=== PATIENT | female | born 1980 | race Caucasian/White ===

== ENCOUNTER 2018-06-21 07:18 | Inpatient (IN) | payer OTHER ==
[2018-06-21] VITALS (7 sets, daily range): BP systolic 119–135; BP diastolic 59–76
[~2018-06-21] VITALS: Ht 177.8 cm; Wt 91.4 kg
--- NOTE | ~2018-06-21 | EKG ---
[place], [place] ELECTROCARDIOGRAM REPORT NAME: FERMÍN GUTIERREZ UNIT #: [id number] ROOM: [place] [address] DOCTOR: MARI DRAFT REPORT BIRTHDATE: [birth year] [facility] Test Date: 2018-06-21 Test Time: 10:15:08 Pat Name: FERMÍN GUTIERREZ Department: Room: [place] [address] Gender: F Undercar Specialist: Shira Duncan : 1980 Requested By: JOSE M BRYANT Order Number: [id number] Reading MD: Riya Ray MD Measurements Intervals [place] Rate: 103 P: 50 CA: 138 QRS: -7 QRSD: 89 T: 41 QT: 370 QTc: 485 Interpretive Statements Sinus tachycardia Electronically Signed On 06-21-2018 14:13:32 PDT by Riya Ray MD CM:EKGRPT:ELECTROCARDIOGRAM REPORT [id number] 1413 JOSE M BRYANT EPIPHANY DRAFT REPORT JOSE M BRYANT
--- NOTE | ~2018-06-21 | EKG ---
[place], [place] ELECTROCARDIOGRAM REPORT NAME: FERMÍN GUTIERREZ UNIT #: [id number] ROOM: [place] [address] DOCTOR: MARI DRAFT REPORT BIRTHDATE: [birth year] [facility] Test Date: 2018-06-21 Test Time: 07:51:09 Pat Name: FERMÍN GUTIERREZ Department: Room: [place] [address] Gender: F Clinical Administrator: Shira Duncan : 1980 Requested By: BRITTNEY CHILEL Order Number: [id number] Reading MD: Riya Ray MD Measurements Intervals [place] Rate: 100 P: 44 RI: 142 QRS: -1 QRSD: 92 T: 35 QT: 396 QTc: 511 Interpretive Statements Sinus tachycardia Prolonged QT interval Electronically Signed On 06-21-2018 14:13:00 PDT by Riya Ray MD CM:EKGRPT:ELECTROCARDIOGRAM REPORT 0751 1413 BRITTNEY CHU DRAFT REPORT BRITTNEY CHILEL DO
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
--- NOTE | ~2018-06-21 | EKG ---
[place], [place] ELECTROCARDIOGRAM REPORT NAME: FERMÍN GUTIERREZ UNIT #: [id number] ROOM: 532 DOCTOR: MARI DRAFT REPORT BIRTHDATE: [birth year] [facility] Test Date: 2018-06-22 Test Time: 07:13:34 Pat Name: FERMÍN GUTIERREZ Department: Room: 532 Gender: F Textile Screen Maker: [place] : 1980 Requested By: JOSE M BRYANT Order Number: [id number] Reading MD: Avtar Walker MD Measurements Intervals [place] Rate: 80 P: 46 SD: 151 QRS: -6 QRSD: 100 T: 30 QT: 408 QTc: 471 Interpretive Statements Sinus rhythm Compared to ECG 06/21/2018 10:15:08 Sinus tachycardia no longer present Electronically Signed On 06-24-2018 9:36:05 PDT by Avtar Walker MD CM:EKGRPT:ELECTROCARDIOGRAM REPORT 0713 0936 JOSE M GUERRA DRAFT REPORT JOSE M BRYANT
[~2018-06-21 07:18] MED LIST: CYCLOBENZAPRINE10 MG PO; DOXYCYCLINE HY100 M3 PO; DULOXETINE HCL60 MG PO; HYDROXYZINE PAM50 MG PO; PERCOCET 325 MG1 TA7 PO; PROMETHAZINE D473 ML PO; REXULTI1 MG PO; TRAZODONE150 MG PO
[2018-06-21 07:50] LABS: HEMATOCRIT 41.2 % (37.0-47.0); MEAN CELL VOLUME 85.8 fl (81.0-99.0); MEAN CORPUSCULAR HGB 29.2 pg (27.0-31.0); MEAN PLATELET VOLUME 9.2 fl (9.6-12.3); PLATELET COUNT AUTOMATED 497 10*3/uL (130-400); WHITE BLOOD COUNT 24.1 10*3/uL (4.8-10.8)
[2018-06-21 07:53] LABS: URINE AMPHETAMINES < 1000 (1000ng/ml); URINE BARBITURATES < 200 (200ng/ml); URINE BENZODIAZEPINES < 200 (200ng/ml); URINE CANNABINOIDS (THC) > 50 (50ng/ml); URINE COCAINE < 300 (300ng/ml); URINE METHADONE < 300 (300ng/ml); URINE OPIATES < 300 (300ng/ml)
[2018-06-21 07:54] LABS: URINE PHENCYCLIDINE < 25 (25ng/ml)
[2018-06-21 07:58] LABS: BILIRUBIN NEGATIVE (NEGATIVE); CLARITY CLEAR (CLEAR); COLOR YELLOW (YELLOW); GLUCOSE TRACE (NEGATIVE); KETONE 1+ (NEGATIVE)
[2018-06-21 07:59] LABS: BLOOD TRACE-INTACT (NEGATIVE); LEUKO ESTERASE NEGATIVE (NEGATIVE); NITRITE NEGATIVE (NEGATIVE); PH 5.5 (5.0-9.0); SPECIFIC GRAVITY 1.005 (1.005-1.030); UROBILINOGEN 0.2 E.U./dl (0.2-1.0)
[2018-06-21 07:59] LABS: ACT PARTIAL THROMBO TIME 24.6 SECONDS (20.8-31.5); INTERNATIONAL NORM RATIO 0.9 (2.0-3.5)
[2018-06-21 08:00] LABS: HYALINE CAST 0-2
[2018-06-21 08:06] LABS: ALBUMIN 3.7 gm/dl (3.1-4.5); ALKALINE PHOSPHATASE 110 U/L (45-117); BUN 5 mg/dl (7-24); CHLORIDE 107 mmol/L (98-107); LIPASE 159 U/L (73-393); POTASSIUM 3.8 mmol/L (3.5-5.1); SGOT/AST 12 IU/L (3-35); SGPT/ALT 24 U/L (12-78); SODIUM 140 mmol/L (136-145); TOTAL PROTEIN 8.9 gm/dL (6.4-8.2)
[2018-06-21 08:08] LABS: PLATELET SUFFICIENCY HIGH (NORMAL); TOTAL CELLS COUNTED 100 #CELLS
[2018-06-21 08:13] LABS: ACETAMINOPHEN (TYLENOL) < 5.0 ug/ml (10-30); BETA-HCG, QUANT < 1.0 mIU/mL (1-3); TROPONIN I < 0.015 ng/ml (<0.045)
[2018-06-21] MEDS ORDERED: BUSPIRONE30 MG PO (11:20)
[2018-06-21] MEDS ORDERED: LIPITOR40 MG PO (11:21)
[2018-06-21] MEDS ORDERED: BASAG SOL SC (11:22)
[2018-06-21] MEDS ORDERED: GLUCOPHAGE1000 MG PO (11:22)
[2018-06-21] MEDS ORDERED: CITALOPRAM40 MG PO (11:23)
[2018-06-21] MEDS ORDERED: ASPIRIN81 M1 PO (11:25)
[2018-06-22] VITALS: BP 128/59
[2018-06-22 04:00] VITALS: BP 99/47
[2018-06-22 05:45] LABS: BUN 9 mg/dl (7-24); CHLORIDE 102 mmol/L (98-107); CHOLESTEROL 114 mg/dL (<200); CREATININE 0.57 mg/dL (0.55-1.02); PHOSPHOROUS 3.1 mg/dL (2.5-4.9); POTASSIUM 3.6 mmol/L (3.5-5.1); SODIUM 137 mmol/L (136-145); TRIGLYCERIDES 190 mg/dl (<150); VLDL CHOLESTEROL 38 mg/dL (6-40)
[2018-06-22 05:53] LABS: ETHYL ALCOHOL < 3.0 mg/dl (<3); FREE T4 0.97 ng/dl (0.76-1.46); HDL CHOLESTEROL 40 mg/dl (40-60); LDL CHOLESTEROL 36 mg/dL (9-159)
[2018-06-22 06:09] LABS: HEMATOCRIT 36.8 % (37.0-47.0); HEMOGLOBIN 12.3 g/dl (12.0-16.0); MEAN CELL VOLUME 86.6 fl (81.0-99.0); MEAN CORPUSCULAR HGB 28.9 pg (27.0-31.0); MEAN CORPUSCULAR HGB CONC 33.4 g/dl (33.0-37.0); MEAN PLATELET VOLUME 9.8 fl (9.6-12.3); PLATELET COUNT AUTOMATED 449 10*3/uL (130-400); RED BLOOD COUNT 4.25 10*6/uL (4.10-5.10); RED CELL DISTRI WIDTH 13.1 % (0-14.5); WHITE BLOOD COUNT 22.1 10*3/uL (4.8-10.8)
[2018-06-22 06:46] LABS: PLATELET SUFFICIENCY HIGH (NORMAL); TOTAL CELLS COUNTED 100 #CELLS
[2018-06-22 08:00] VITALS: BP 121/68
[2018-06-22 08:14] LABS: VITAMIN D, 25-HYDROXY 24.9 ng/mL (30-100)
[2018-06-22 16:00] VITALS: BP 131/65
[2018-06-22 20:00] VITALS: BP 122/55
[2018-06-23] VITALS: BP 124/60
[2018-06-23 07:05] LABS: HEMATOCRIT 35.9 % (37.0-47.0); HEMOGLOBIN 11.7 g/dl (12.0-16.0); MEAN CELL VOLUME 87.8 fl (81.0-99.0); MEAN CORPUSCULAR HGB 28.6 pg (27.0-31.0); MEAN CORPUSCULAR HGB CONC 32.6 g/dl (33.0-37.0); MEAN PLATELET VOLUME 9.8 fl (9.6-12.3); PLATELET COUNT AUTOMATED 431 10*3/uL (130-400); RED BLOOD COUNT 4.09 10*6/uL (4.10-5.10); RED CELL DISTRI WIDTH 13.2 % (0-14.5); WHITE BLOOD COUNT 18.6 10*3/uL (4.8-10.8)
[2018-06-23 07:27] LABS: BASOPHILS 1 % (0-1); PLATELET SUFFICIENCY HIGH (NORMAL); TOTAL CELLS COUNTED 100 #CELLS
[2018-06-23 07:28] LABS: BUN 12 mg/dl (7-24); CHLORIDE 103 mmol/L (98-107); CREATININE 0.61 mg/dL (0.55-1.02); POTASSIUM 3.7 mmol/L (3.5-5.1); SODIUM 136 mmol/L (136-145)
[2018-06-23 08:00] VITALS: BP 119/59
[2018-06-23 12:00] VITALS: BP 112/49
[2018-06-23 16:00] VITALS: BP 117/78
[2018-06-24] VITALS: BP 129/71
[2018-06-24 08:00] VITALS: BP 124/53
[2018-06-24 12:00] VITALS: BP 128/56
== END 2018-06-24 15:15 | disposition home or self-care (01) | DRG 918 ==
LOC: ED 07:18 → EDHOLD 09:15 → ICCU 09:15 → 5E 09:15 → ICCU 09:23 → 5E 06-22 16:20
PROVIDERS: Emergency Medicine; Internal Medicine
DX: T38.3X2A Poisoning by insulin and oral hypoglycemic [antidiabetic] drugs, intentional self-harm, initial encounter (principal); E87.2 Acidosis; R45.851 Suicidal ideations; R65.10 Systemic inflammatory response syndrome (SIRS) of non-infectious origin without acute organ dysfunction; F33.2 Major depressive disorder, recurrent severe without psychotic features; R94.31 Abnormal electrocardiogram [ECG] [EKG]; F43.10 Post-traumatic stress disorder, unspecified; F40.00 Agoraphobia, unspecified; F41.9 Anxiety disorder, unspecified; R00.0 Tachycardia, unspecified; D72.829 Elevated white blood cell count, unspecified; R79.82 Elevated C-reactive protein (CRP); R80.9 Proteinuria, unspecified; R82.4 Acetonuria; F19.10 Other psychoactive substance abuse, uncomplicated; E11.65 Type 2 diabetes mellitus with hyperglycemia; R31.9 Hematuria, unspecified; D47.3 Essential (hemorrhagic) thrombocythemia; F12.90 Cannabis use, unspecified, uncomplicated; F10.920 Alcohol use, unspecified with intoxication, uncomplicated; Z71.6 Tobacco abuse counseling; Z68.20 Body mass index [BMI] 20.0-20.9, adult; Z88.8 Allergy status to other drugs, medicaments and biological substances; Z79.899 Other long term (current) drug therapy; Z79.82 Long term (current) use of aspirin; Z78.9 Other specified health status; Z72.0 Tobacco use; Z79.4 Long term (current) use of insulin; Z90.49 Acquired absence of other specified parts of digestive tract; Z90.81 Acquired absence of spleen; Z82.49 Family history of ischemic heart disease and other diseases of the circulatory system; Z83.511 Family history of glaucoma; Z83.3 Family history of diabetes mellitus; Z81.8 Family history of other mental and behavioral disorders; Z84.89 Family history of other specified conditions; Y92.89 Other specified places as the place of occurrence of the external cause

== ENCOUNTER 2018-08-29 23:26 | Emergency (ER) | payer OTHER ==
[~2018-08-29] VITALS: Ht 177.8 cm; Wt 93.0 kg
[~2018-08-29 23:26] MED LIST changes: +ASPIRIN81 M1 PO; +BASAG SOL SC; +BUSPIRONE30 MG PO; +CITALOPRAM40 MG PO; +GLUCOPHAGE1000 MG PO; +LIPITOR40 MG PO
[2018-08-30 00:18] LABS: ALBUMIN 3.9 gm/dl (3.1-4.5); ALKALINE PHOSPHATASE 100 U/L (45-117); BUN 11 mg/dl (7-24); CHLORIDE 97 mmol/L (98-107); CREATININE 0.88 mg/dL (0.55-1.02); SGOT/AST 22 IU/L (3-35); SGPT/ALT 27 U/L (12-78); SODIUM 130 mmol/L (136-145); TOTAL PROTEIN 8.3 gm/dL (6.4-8.2)
[2018-08-30 00:22] LABS: HEMATOCRIT 39.3 % (37.0-47.0); HEMOGLOBIN 12.9 g/dl (12.0-16.0); MEAN CORPUSCULAR HGB 28.2 pg (27.0-31.0); MEAN CORPUSCULAR HGB CONC 32.8 g/dl (33.0-37.0); MEAN PLATELET VOLUME 10.4 fl (9.6-12.3); PLATELET COUNT AUTOMATED 571 10*3/uL (130-400); RED BLOOD COUNT 4.57 10*6/uL (4.10-5.10); RED CELL DISTRI WIDTH 12.3 % (0-14.5); WHITE BLOOD COUNT 17.8 10*3/uL (4.8-10.8)
[2018-08-30 00:43] LABS: ATYPICAL LYMPHS 2 % (0-0); PLATELET SUFFICIENCY HIGH (NORMAL); TOTAL CELLS COUNTED 100 #CELLS
== END 2018-08-30 01:49 | disposition home or self-care (01) ==
LOC: ED 23:26
PROVIDERS: Physician Assistant
DX: E11.65 Type 2 diabetes mellitus with hyperglycemia (principal); Z88.1 Allergy status to other antibiotic agents; Z79.899 Other long term (current) drug therapy; Z79.82 Long term (current) use of aspirin

== ENCOUNTER 2019-02-02 15:12 | Emergency (ER) | payer OTHER ==
[~2019-02-02] VITALS: Ht 177.8 cm; Wt 95.3 kg
[2019-02-02 15:36] LABS: HEMOGLOBIN 14.1 g/dl (12.0-16.0); MEAN CELL VOLUME 88.4 fl (81.0-99.0); MEAN CORPUSCULAR HGB 29.7 pg (27.0-31.0); MEAN CORPUSCULAR HGB CONC 33.6 g/dl (33.0-37.0); MEAN PLATELET VOLUME 9.9 fl (9.6-12.3); PLATELET COUNT AUTOMATED 626 10*3/uL (130-400); RED BLOOD COUNT 4.75 10*6/uL (4.10-5.10); RED CELL DISTRI WIDTH 13.9 % (0-14.5); WHITE BLOOD COUNT 19.4 10*3/uL (4.8-10.8)
[2019-02-02 15:38] LABS: BILIRUBIN NEGATIVE (NEGATIVE); BLOOD NEGATIVE (NEGATIVE); CLARITY SL CLOUDY (CLEAR); COLOR YELLOW (YELLOW); GLUCOSE NEGATIVE (NEGATIVE); KETONE NEGATIVE (NEGATIVE); LEUKO ESTERASE NEGATIVE (NEGATIVE); NITRITE NEGATIVE (NEGATIVE); SPECIFIC GRAVITY >= 1.030 (1.005-1.030); UROBILINOGEN 0.2 E.U./dl (0.2-1.0)
[2019-02-02 15:48] LABS: BACTERIA 1+; CALCIUM OXALATE CRYSTALS 3+; EPITHELIAL CELLS 21-30
[2019-02-02 15:50] LABS: ALBUMIN 4.3 gm/dl (3.1-4.5); ALKALINE PHOSPHATASE 78 U/L (45-117); BUN 7 mg/dl (7-24); CHLORIDE 102 mmol/L (98-107); CREATININE 0.88 mg/dL (0.55-1.02); LIPASE 218 U/L (73-393); SGOT/AST 43 IU/L (3-35); SGPT/ALT 85 U/L (12-78); SODIUM 137 mmol/L (136-145)
[2019-02-02 15:57] LABS: TOTAL CELLS COUNTED 100 #CELLS
[2019-02-02 15:58] LABS: BURR CELLS FEW; PLATELET SUFFICIENCY HIGH (NORMAL)
[2019-02-02] MEDS ORDERED: TRULICITY1.5 MG/0.5 SC (16:05)
[2019-02-02] MEDS ORDERED: BASAG SOL SQ (16:06)
[2019-02-02] MEDS ORDERED: TRAZODONE HCL300 MG PO (16:07)
[2019-02-02] MEDS ORDERED: FENOFIBRATE54 MG PO (16:08)
[2019-02-02] MEDS ORDERED: ADMELOG100 UNIT/1 SQ (16:12)
[2019-02-02] MEDS ORDERED: ZOFRAN4 MG PO (17:20)
== END 2019-02-02 17:30 | disposition home or self-care (01) ==
LOC: ED 15:12
PROVIDERS: Nurse Practitioner Family
DX: D72.829 Elevated white blood cell count, unspecified (principal); R94.5 Abnormal results of liver function studies; R11.2 Nausea with vomiting, unspecified; R10.11 Right upper quadrant pain; M25.511 Pain in right shoulder; Z88.1 Allergy status to other antibiotic agents; Z72.0 Tobacco use; Z79.899 Other long term (current) drug therapy; Z90.49 Acquired absence of other specified parts of digestive tract

== ENCOUNTER 2019-09-13 16:57 | Emergency (ER) | payer OTHER ==
[~2019-09-13] VITALS: Ht 177.8 cm; Wt 90.7 kg
[~2019-09-13 16:57] MED LIST changes: +ADMELOG100 UNIT/1 SQ; +BASAG SOL SQ; +FENOFIBRATE54 MG PO; +TRAZODONE HCL300 MG PO; +TRULICITY1.5 MG/0.5 SC; +ZOFRAN4 MG PO
[2019-09-13] MEDS ORDERED: DOXYCYCLINE100 M3 PO (17:17)
[2019-09-13] MEDS ORDERED: IBUPROFEN600 MG PO (17:17)
== END 2019-09-13 17:28 | disposition home or self-care (01) ==
LOC: ED 16:57
DX: L02.01 Cutaneous abscess of face (principal); E78.5 Hyperlipidemia, unspecified; E11.9 Type 2 diabetes mellitus without complications; F17.200 Nicotine dependence, unspecified, uncomplicated; Z88.1 Allergy status to other antibiotic agents; Z79.4 Long term (current) use of insulin; Z79.899 Other long term (current) drug therapy; Z90.49 Acquired absence of other specified parts of digestive tract; Z86.14 Personal history of Methicillin resistant Staphylococcus aureus infection

== ENCOUNTER 2019-10-01 15:46 | Emergency (ER) | payer OTHER ==
[~2019-10-01] VITALS: Ht 177.8 cm; Wt 83.9 kg
[~2019-10-01 15:46] MED LIST changes: +DOXYCYCLINE100 M3 PO; +IBUPROFEN600 MG PO
== END 2019-10-01 16:35 | disposition home or self-care (01) ==
LOC: ED 15:46
DX: J02.0 Streptococcal pharyngitis (principal); E11.9 Type 2 diabetes mellitus without complications; E78.5 Hyperlipidemia, unspecified; F17.200 Nicotine dependence, unspecified, uncomplicated; Z88.1 Allergy status to other antibiotic agents; Z79.2 Long term (current) use of antibiotics; Z79.899 Other long term (current) drug therapy; Z79.4 Long term (current) use of insulin; Z90.49 Acquired absence of other specified parts of digestive tract

== ENCOUNTER → 2019-10-10 | Outpatient (CLI) | payer OTHER ==
[2019-10-10 12:44] LABS: BILIRUBIN NEGATIVE (NEGATIVE); BLOOD NEGATIVE (NEGATIVE); CLARITY CLOUDY (CLEAR); COLOR YELLOW (YELLOW); GLUCOSE 3+ (NEGATIVE); KETONE NEGATIVE (NEGATIVE); LEUKO ESTERASE NEGATIVE (NEGATIVE); NITRITE NEGATIVE (NEGATIVE); SPECIFIC GRAVITY 1.025 (1.005-1.030); UROBILINOGEN 0.2 E.U./dl (0.2-1.0)
[2019-10-10 12:59] LABS: ALBUMIN 3.5 gm/dl (3.1-4.5); BILIRUBIN, DIRECT < 0.1 mg/dL (0.0-0.2); BUN 7 mg/dl (7-24); CHLORIDE 101 mmol/L (98-107); CHOLESTEROL 145 mg/dL (<200); CREATININE 0.78 mg/dL (0.55-1.02); POTASSIUM 3.9 mmol/L (3.5-5.1); SGOT/AST 9 IU/L (3-35); SGPT/ALT 15 U/L (12-78); SODIUM 134 mmol/L (136-145); TOTAL PROTEIN 8.1 gm/dL (6.4-8.2); TRIGLYCERIDES 229 mg/dl (<150); VLDL CHOLESTEROL 46 mg/dL (6-40)
[2019-10-10 13:06] LABS: ALKALINE PHOSPHATASE 110 U/L (45-117); FREE T4 1.11 ng/dl (0.76-1.46); HDL CHOLESTEROL 36 mg/dl (40-60); LDL CHOLESTEROL 63 mg/dL (9-159)
[2019-10-10 13:45] LABS: BACTERIA 2+; EPITHELIAL CELLS 20-30; WBC 31-40 wbc/hpf (0-5); YEAST 1+
== END | disposition home or self-care (01) ==
LOC: LAB 11:58
PROVIDERS: Internal Medicine
DX: E78.5 Hyperlipidemia, unspecified (principal); E11.65 Type 2 diabetes mellitus with hyperglycemia; E55.9 Vitamin D deficiency, unspecified; E04.9 Nontoxic goiter, unspecified

== ENCOUNTER → 2019-12-31 | Outpatient (CLI) | payer OTHER | END | disposition home or self-care (01) | LOC: LAB 13:35 | DX: M54.12 Radiculopathy, cervical region (principal) ==

== ENCOUNTER → 2020-04-08 | Outpatient (CLI) | payer OTHER ==
[2020-04-08 11:02] LABS: BILIRUBIN NEGATIVE (NEGATIVE); BLOOD NEGATIVE (NEGATIVE); CLARITY CLOUDY (CLEAR); COLOR YELLOW (YELLOW); GLUCOSE NEGATIVE (NEGATIVE); KETONE NEGATIVE (NEGATIVE); LEUKO ESTERASE NEGATIVE (NEGATIVE); NITRITE NEGATIVE (NEGATIVE); PH 8.5 (5.0-9.0); SPECIFIC GRAVITY 1.005 (1.005-1.030); UROBILINOGEN 0.2 E.U./dl (0.2-1.0)
[2020-04-08 11:19] LABS: BACTERIA 2+; EPITHELIAL CELLS 41-50
[2020-04-08 11:24] LABS: ALBUMIN 3.6 gm/dl (3.1-4.5); ALKALINE PHOSPHATASE 78 U/L (45-117); BILIRUBIN, DIRECT < 0.1 mg/dL (0.0-0.2); BUN 10 mg/dl (7-24); CHLORIDE 106 mmol/L (98-107); CHOLESTEROL 134 mg/dL (<200); HDL CHOLESTEROL 55 mg/dl (40-60); LDL CHOLESTEROL 57 mg/dL (9-159); POTASSIUM 3.7 mmol/L (3.5-5.1); SGOT/AST 11 IU/L (3-35); SGPT/ALT 16 U/L (12-78); SODIUM 138 mmol/L (136-145); TOTAL PROTEIN 8.1 gm/dL (6.4-8.2); TRIGLYCERIDES 112 mg/dl (<150); VLDL CHOLESTEROL 22 mg/dL (6-40)
== END ==
LOC: LAB 10:27
PROVIDERS: Internal Medicine
DX: E11.65 Type 2 diabetes mellitus with hyperglycemia (principal); E55.9 Vitamin D deficiency, unspecified; E78.5 Hyperlipidemia, unspecified; E04.9 Nontoxic goiter, unspecified

== ENCOUNTER → 2020-08-05 | Outpatient (CLI) | payer OTHER ==
[2020-08-05 09:13] LABS: BILIRUBIN Negative (Negative); BLOOD Negative (Negative); CLARITY Clear (Clear); COLOR Yellow (Yellow); GLUCOSE 2+ (Negative); KETONE Negative (Negative); LEUKO ESTERASE Negative (Negative); NITRITE Negative (Negative); UROBILINOGEN 0.2 E.U./dl (0.0-1.0)
[2020-08-05 09:32] LABS: ALBUMIN 3.3 gm/dl (3.1-4.5); ALKALINE PHOSPHATASE 92 U/L (45-117); BILIRUBIN, DIRECT < 0.1 mg/dL (0.0-0.2); BUN 9 mg/dl (7-24); CHLORIDE 107 mmol/L (98-107); CREATININE 0.89 mg/dL (0.55-1.02); POTASSIUM 4.1 mmol/L (3.5-5.1); SGOT/AST 11 IU/L (3-35); SGPT/ALT 14 U/L (12-78); SODIUM 137 mmol/L (136-145); TOTAL PROTEIN 8.1 gm/dL (6.4-8.2)
[2020-08-05 09:33] LABS: FREE T4 0.99 ng/dl (0.76-1.46)
[2020-08-05 09:38] LABS: THYROID STIM HORMONE (HS) 4.52 uIU/ml (0.358-4.75)
[2020-08-05 09:39] LABS: BACTERIA 1+
[2020-08-06 06:08] LABS: HEP B CORE AB TOTAL Negative (Negative); HEPATITIS B SURFACE AB Non Reactive (.); HEPATITIS B SURFACE AG Negative (Negative)
== END | disposition home or self-care (01) ==
LOC: LAB 08:29
PROVIDERS: Internal Medicine; ATTEND Nurse Practitioner Family
DX: E11.65 Type 2 diabetes mellitus with hyperglycemia (principal); E78.5 Hyperlipidemia, unspecified; E04.9 Nontoxic goiter, unspecified; E55.9 Vitamin D deficiency, unspecified; R71.8 Other abnormality of red blood cells

== ENCOUNTER → 2020-09-07 | Outpatient (CLI) | payer OTHER ==
[2020-09-07 09:16] LABS: BILIRUBIN Negative (Negative); BLOOD Negative (Negative); CLARITY Clear (Clear); COLOR Yellow (Yellow); GLUCOSE Trace (Negative); KETONE Negative (Negative); LEUKO ESTERASE Negative (Negative); NITRITE Negative (Negative); PH 7.5 (4.5-8.0); UROBILINOGEN 0.2 E.U./dl (0.0-1.0)
[2020-09-07 09:27] LABS: HEMATOCRIT 39.2 % (37.0-47.0); MEAN CELL VOLUME 88.1 fl (81.0-99.0); MEAN CORPUSCULAR HGB 28.1 pg (27.0-31.0); MEAN CORPUSCULAR HGB CONC 31.9 g/dl (33.0-37.0); MEAN PLATELET VOLUME 10.3 fl (9.6-12.3); PLATELET COUNT AUTOMATED 490 10*3/uL (130-400); RED BLOOD COUNT 4.45 10*6/uL (4.10-5.10); RED CELL DISTRI WIDTH 13.3 % (0-14.5); WHITE BLOOD COUNT 19.1 10*3/uL (4.8-10.8)
[2020-09-07 09:38] LABS: RBC 0-2 rbc/hpf (0-2); WBC 0-2 wbc/hpf (0-5)
[2020-09-07 09:44] LABS: ACANTHOCYTES FEW; ATYPICAL LYMPHS 2 % (0-0); BASOPHILS 1 % (0-1); PLATELET SUFFICIENCY HIGH (NORMAL); TOTAL CELLS COUNTED 100 #CELLS
[2020-09-07 09:57] LABS: ALKALINE PHOSPHATASE 97 U/L (45-117); BUN 5 mg/dl (7-24); CHLORIDE 107 mmol/L (98-107); CREATININE 0.79 mg/dL (0.55-1.02); POTASSIUM 3.7 mmol/L (3.5-5.1); SGOT/AST 16 IU/L (3-35); SGPT/ALT 16 U/L (12-78); SODIUM 139 mmol/L (136-145); TOTAL PROTEIN 7.7 gm/dL (6.4-8.2)
== END | disposition home or self-care (01) ==
LOC: US 09-01 15:00 → LAB 08:39
PROVIDERS: ATTEND Urology
DX: E11.9 Type 2 diabetes mellitus without complications (principal); R35.0 Frequency of micturition

== ENCOUNTER 2021-01-26 19:15 | Emergency (ER) | payer OTHER ==
[~2021-01-26] VITALS: Wt 103.1 kg
[2021-01-26] MEDS ORDERED: REMERON15 M2 PO (19:34)
[2021-01-26] MEDS ORDERED: VRAYLAR4.5 MG PO (19:35)
[2021-01-26] MEDS ORDERED: GABAPENTIN400 MG PO (19:35)
[2021-01-26 19:57] LABS: HEMATOCRIT 38.5 % (37.0-47.0); MEAN CELL VOLUME 86.3 fl (81.0-99.0); MEAN CORPUSCULAR HGB CONC 32.5 g/dl (33.0-37.0); MEAN PLATELET VOLUME 9.6 fl (9.6-12.3); PLATELET COUNT AUTOMATED 660 10*3/uL (130-400); RED BLOOD COUNT 4.46 10*6/uL (4.10-5.10); RED CELL DISTRI WIDTH 13.4 % (0-14.5); WHITE BLOOD COUNT 27.2 10*3/uL (4.8-10.8)
[2021-01-26 19:57] LABS: BILIRUBIN Negative (Negative); BLOOD Negative (Negative); CLARITY Cloudy (Clear); COLOR Dark Yellow (Yellow); GLUCOSE 2+ (Negative); KETONE Trace (Negative); LEUKO ESTERASE Trace (Negative); NITRITE Negative (Negative); PH 5.5 (4.5-8.0); SPECIFIC GRAVITY >= 1.030 (1.001-1.030)
[2021-01-26 20:15] LABS: ALBUMIN 3.4 gm/dl (3.1-4.5); ALKALINE PHOSPHATASE 102 U/L (45-117); BUN 8 mg/dl (7-24); CHLORIDE 106 mmol/L (98-107); CPK 42 U/L (26-192); CREATININE 0.93 mg/dL (0.55-1.02); POTASSIUM 3.3 mmol/L (3.5-5.1); SGOT/AST 6 IU/L (3-35); SGPT/ALT 20 U/L (12-78); SODIUM 140 mmol/L (136-145); TOTAL PROTEIN 8.6 gm/dL (6.4-8.2)
[2021-01-26 20:16] LABS: BACTERIA 2+; CALCIUM OXALATE CRYSTALS Trace; EPITHELIAL CELLS 41-50; FINE GRANULAR CAST 0-2; MUCOUS TRACE; RBC 0-2 rbc/hpf (0-2)
[2021-01-26 20:22] LABS: TROPONIN I < 0.015 ng/ml (<0.045)
[2021-01-26 20:30] LABS: ATYPICAL LYMPHS 2 % (0-0); PLATELET SUFFICIENCY HIGH (NORMAL); TOTAL CELLS COUNTED 100 #CELLS
[2021-01-26 20:31] LABS: BURR CELLS FEW
== END 2021-01-27 00:27 | disposition short-term general hospital (02) ==
LOC: ED 19:15
PROVIDERS: Emergency Medicine
DX: D72.829 Elevated white blood cell count, unspecified (principal); R56.9 Unspecified convulsions; F41.9 Anxiety disorder, unspecified; F32.9 Major depressive disorder, single episode, unspecified; E78.5 Hyperlipidemia, unspecified; Z88.8 Allergy status to other drugs, medicaments and biological substances; Z79.899 Other long term (current) drug therapy; Z79.4 Long term (current) use of insulin; Z90.49 Acquired absence of other specified parts of digestive tract; Z98.890 Other specified postprocedural states

== ENCOUNTER → 2021-03-28 | Outpatient (CLI) | payer OTHER ==
[~2021-03-28] MED LIST changes: +GABAPENTIN400 MG PO; +REMERON15 M2 PO; +VRAYLAR4.5 MG PO
[2021-03-28 10:20] LABS: HEMATOCRIT 37.8 % (37.0-47.0); MEAN CELL VOLUME 88.7 fl (81.0-99.0); MEAN CORPUSCULAR HGB 28.4 pg (27.0-31.0); MEAN PLATELET VOLUME 10.8 fl (9.6-12.3); PLATELET COUNT AUTOMATED 549 10*3/uL (130-400); RED BLOOD COUNT 4.26 10*6/uL (4.10-5.10); RED CELL DISTRI WIDTH 14.1 % (0-14.5); WHITE BLOOD COUNT 17.8 10*3/uL (4.8-10.8)
[2021-03-28 10:31] LABS: ACT PARTIAL THROMBO TIME 28.3 SECONDS (20.0-32.1); INTERNATIONAL NORM RATIO 0.9 (2.0-3.5)
[2021-03-28 10:42] LABS: TOTAL CELLS COUNTED 100 #CELLS
[2021-03-28 10:43] LABS: BURR CELLS FEW; PLATELET SUFFICIENCY HIGH (NORMAL); POLYCHROMASIA SLIGHT
[2021-03-28 10:44] LABS: BASOPHILS 1 % (0-1)
[2021-03-28 10:54] LABS: BUN 7 mg/dl (7-24); CHLORIDE 107 mmol/L (98-107); CREATININE 0.92 mg/dL (0.55-1.02); POTASSIUM 3.9 mmol/L (3.5-5.1); SODIUM 139 mmol/L (136-145)
[2021-03-28 10:58] LABS: B-hCG (QUALITATIVE) NEGATIVE (NEGATIVE)
== END | disposition home or self-care (01) ==
LOC: LAB 09:26
DX: G40.909 Epilepsy, unspecified, not intractable, without status epilepticus (principal); R93.0 Abnormal findings on diagnostic imaging of skull and head, not elsewhere classified

== ENCOUNTER → 2021-05-05 | Outpatient (CLI) | payer OTHER ==
[2021-05-05 09:56] LABS: BILIRUBIN Negative (Negative); BLOOD Negative (Negative); CLARITY Turbid (Clear); COLOR Yellow (Yellow); GLUCOSE Negative (Negative); KETONE Trace (Negative); LEUKO ESTERASE 1+ (Negative); NITRITE Negative (Negative); PH 5.5 (4.5-8.0); SPECIFIC GRAVITY 1.025 (1.001-1.030)
[2021-05-05 10:09] LABS: EPITHELIAL CELLS TNTC; MUCOUS 1+
[2021-05-05 10:15] LABS: ALBUMIN 3.6 gm/dl (3.1-4.5); ALKALINE PHOSPHATASE 79 U/L (45-117); BUN 8 mg/dl (7-24); CHLORIDE 108 mmol/L (98-107); CHOLESTEROL 129 mg/dL (<200); CREATININE 0.74 mg/dL (0.55-1.02); FREE T4 1.14 ng/dl (0.76-1.46); LDL CHOLESTEROL 61 mg/dL (9-159); POTASSIUM 3.6 mmol/L (3.5-5.1); SGOT/AST 12 IU/L (3-35); SGPT/ALT 14 U/L (12-78); SODIUM 136 mmol/L (136-145); TOTAL PROTEIN 8.1 gm/dL (6.4-8.2); TRIGLYCERIDES 146 mg/dl (<150)
== END | disposition home or self-care (01) ==
LOC: LAB 09:37
PROVIDERS: ATTEND Internal Medicine
DX: E11.65 Type 2 diabetes mellitus with hyperglycemia (principal); E78.5 Hyperlipidemia, unspecified; E11.40 Type 2 diabetes mellitus with diabetic neuropathy, unspecified; E55.9 Vitamin D deficiency, unspecified; E04.9 Nontoxic goiter, unspecified

== ENCOUNTER → 2021-07-08 | Outpatient (CLI) | payer OTHER | END | disposition home or self-care (01) | LOC: CT 09:53 | PROVIDERS: ATTEND Nurse Practitioner Family | DX: R59.0 Localized enlarged lymph nodes (principal) ==

== ENCOUNTER 2021-07-22 10:21 | Emergency (ER) | payer OTHER ==
[~2021-07-22] VITALS: Wt 94.3 kg
[2021-07-22 11:45] LABS: BILIRUBIN 1+ (Negative); BLOOD 2+ (Negative); CLARITY Turbid (Clear); COLOR Red (Yellow); GLUCOSE Negative (Negative); KETONE Negative (Negative); LEUKO ESTERASE 3+ (Negative); NITRITE Positive (Negative); PH 5.5 (4.5-8.0); UROBILINOGEN 0.2 E.U./dl (0.0-1.0)
[2021-07-22 11:58] LABS: BACTERIA 3+; RBC TNTC rbc/hpf (0-2); WBC TNTC wbc/hpf (0-5)
[2021-07-22] MEDS ORDERED: PYRIDIUM200 M1 PO (12:16)
[2021-07-22] MEDS ORDERED: MACROBID100 M1 PO (12:16)
== END 2021-07-22 12:33 | disposition home or self-care (01) ==
LOC: ED 10:21
PROVIDERS: Nurse Practitioner Family
DX: N39.0 Urinary tract infection, site not specified (principal); F17.200 Nicotine dependence, unspecified, uncomplicated; Z88.1 Allergy status to other antibiotic agents; Z79.899 Other long term (current) drug therapy; Z79.4 Long term (current) use of insulin; Z90.49 Acquired absence of other specified parts of digestive tract; Z90.89 Acquired absence of other organs

== ENCOUNTER 2021-08-09 15:19 | Emergency (ER) | payer OTHER ==
[~2021-08-09] VITALS: Ht 177.8 cm; Wt 94.3 kg
[~2021-08-09 15:19] MED LIST changes: +MACROBID100 M1 PO; +PYRIDIUM200 M1 PO
[2021-08-09] MEDS ORDERED: WELLBUTRIN XL150 MG PO (15:46)
[2021-08-09] MEDS ORDERED: TRAZODONE100 MG PO (15:47)
[2021-08-09] MEDS ORDERED: REGLAN10 M1 PO (15:47)
[2021-08-09] MEDS ORDERED: ZOFRAN4 MG PO (15:48)
[2021-08-09 16:04] LABS: BILIRUBIN Negative (Negative); BLOOD Negative (Negative); CLARITY Cloudy (Clear); COLOR Yellow (Yellow); GLUCOSE Negative (Negative); KETONE Trace (Negative); LEUKO ESTERASE 1+ (Negative); NITRITE Negative (Negative); PH 5.5 (4.5-8.0); SPECIFIC GRAVITY 1.025 (1.001-1.030)
[2021-08-09 16:15] LABS: BACTERIA 2+; EPITHELIAL CELLS 51-100; MUCOUS 1+; RBC 0-2 rbc/hpf (0-2); WBC 16-20 wbc/hpf (0-5)
[2021-08-09 16:25] LABS: URINE AMPHETAMINES > 1000 (1000ng/ml); URINE BARBITURATES < 200 (200ng/ml); URINE BENZODIAZEPINES < 200 (200ng/ml); URINE CANNABINOIDS (THC) > 50 (50ng/ml); URINE COCAINE > 300 (300ng/ml); URINE METHADONE < 300 (300ng/ml); URINE OPIATES < 300 (300ng/ml)
[2021-08-09 16:30] LABS: URINE PHENCYCLIDINE < 25 (25ng/ml)
[2021-08-09 16:42] LABS: HEMATOCRIT 38.6 % (37.0-47.0); MEAN CELL VOLUME 86.7 fl (81.0-99.0); MEAN CORPUSCULAR HGB 28.1 pg (27.0-31.0); MEAN CORPUSCULAR HGB CONC 32.4 g/dl (33.0-37.0); PLATELET COUNT AUTOMATED 598 10*3/uL (130-400); RED BLOOD COUNT 4.45 10*6/uL (4.10-5.10); RED CELL DISTRI WIDTH 13.8 % (0-14.5); WHITE BLOOD COUNT 20.8 10*3/uL (4.8-10.8)
[2021-08-09 17:04] LABS: ALBUMIN 3.3 gm/dl (3.1-4.5); ALKALINE PHOSPHATASE 69 U/L (45-117); BUN 7 mg/dl (7-24); CHLORIDE 107 mmol/L (98-107); CREATININE 0.74 mg/dL (0.55-1.02); SGOT/AST 21 IU/L (3-35); SGPT/ALT 22 U/L (12-78); SODIUM 137 mmol/L (136-145); TOTAL PROTEIN 7.7 gm/dL (6.4-8.2)
[2021-08-09 17:05] LABS: ACANTHOCYTES FEW; ATYPICAL LYMPHS 5 % (0-0); BASOPHILS 1 % (0-1); PLATELET SUFFICIENCY HIGH (NORMAL); TOTAL CELLS COUNTED 100 #CELLS
[2021-08-09 17:06] LABS: BURR CELLS MODERATE
[2021-08-09 17:33] LABS: B-hCG (QUALITATIVE) NEGATIVE (NEGATIVE)
[2021-08-09 17:45] LABS: CARBAMAZEPINE (TEGRETOL) TOTAL < 0.5 ug/ml (4-12)
[2021-08-09 20:35] LABS: CPK 30 U/L (26-192)
[2021-08-09 20:36] LABS: ETHYL ALCOHOL < 3.0 mg/dl (<3)
== END 2021-08-10 09:15 | disposition short-term general hospital (02) ==
LOC: ED 15:19
PROVIDERS: Internal Medicine
DX: F43.21 Adjustment disorder with depressed mood (principal); Z20.822 Contact with and (suspected) exposure to COVID-19; R45.851 Suicidal ideations; F17.200 Nicotine dependence, unspecified, uncomplicated; Z79.899 Other long term (current) drug therapy; Z88.1 Allergy status to other antibiotic agents

== ENCOUNTER → 2021-09-19 | Outpatient (CLI) | payer OTHER ==
[~2021-09-19] MED LIST changes: +REGLAN10 M1 PO; +TRAZODONE100 MG PO; +WELLBUTRIN XL150 MG PO
[2021-09-19 08:42] LABS: BILIRUBIN Negative (Negative); BLOOD Negative (Negative); CLARITY Turbid (Clear); COLOR Dark Yellow (Yellow); GLUCOSE 3+ (Negative); KETONE Trace (Negative); LEUKO ESTERASE Negative (Negative); NITRITE Negative (Negative); SPECIFIC GRAVITY >= 1.030 (1.001-1.030)
[2021-09-19 09:07] LABS: BACTERIA TRACE; CALCIUM OXALATE CRYSTALS 1+; EPITHELIAL CELLS 21-30
[2021-09-19 09:24] LABS: ALBUMIN 3.2 gm/dl (3.1-4.5); ALKALINE PHOSPHATASE 75 U/L (45-117); BUN 5 mg/dl (7-24); CHLORIDE 105 mmol/L (98-107); CHOLESTEROL 95 mg/dL (<200); CREATININE 0.65 mg/dL (0.55-1.02); FREE T4 1.16 ng/dl (0.76-1.46); LDL CHOLESTEROL 33 mg/dL (9-159); POTASSIUM 3.9 mmol/L (3.5-5.1); SGOT/AST 45 IU/L (3-35); SGPT/ALT 65 U/L (12-78); SODIUM 139 mmol/L (136-145); TOTAL PROTEIN 7.6 gm/dL (6.4-8.2); TRIGLYCERIDES 140 mg/dl (<150)
[2021-09-19 10:19] LABS: VITAMIN D, 25-HYDROXY 52.8 ng/mL (30-100)
== END | disposition home or self-care (01) ==
LOC: LAB 07:48
PROVIDERS: ATTEND Internal Medicine
DX: E11.65 Type 2 diabetes mellitus with hyperglycemia (principal); E11.40 Type 2 diabetes mellitus with diabetic neuropathy, unspecified; E78.5 Hyperlipidemia, unspecified; E55.9 Vitamin D deficiency, unspecified; E04.9 Nontoxic goiter, unspecified

== ENCOUNTER → 2022-03-27 | Outpatient (CLI) | payer OTHER ==
[2022-03-27 08:59] LABS: BILIRUBIN Negative (Negative); BLOOD Trace-Intact (Negative); CLARITY Clear (Clear); COLOR Dark Yellow (Yellow); GLUCOSE Trace (Negative); KETONE Trace (Negative); LEUKO ESTERASE Negative (Negative); NITRITE Negative (Negative); SPECIFIC GRAVITY >= 1.030 (1.001-1.030); UROBILINOGEN 0.2 E.U./dl (0.0-1.0)
[2022-03-27 09:16] LABS: BUN 11 mg/dl (7-24); CHLORIDE 105 mmol/L (98-107); SODIUM 138 mmol/L (136-145)
[2022-03-27 09:27] LABS: ALKALINE PHOSPHATASE 55 U/L (45-117); CHOLESTEROL 92 mg/dL (<200); CREATININE 0.95 mg/dL (0.55-1.02); LDL CHOLESTEROL 23 mg/dL (9-159); SGOT/AST 13 IU/L (3-35); SGPT/ALT 17 U/L (12-78); TOTAL PROTEIN 7.2 gm/dL (6.4-8.2); TRIGLYCERIDES 89 mg/dl (<150)
[2022-03-27 09:50] LABS: BACTERIA 1+; CALCIUM OXALATE CRYSTALS Trace; EPITHELIAL CELLS TNTC; WBC 0-2 wbc/hpf (0-5)
[2022-03-27 10:03] LABS: VITAMIN D, 25-HYDROXY 49.2 ng/mL (30-100)
== END | disposition home or self-care (01) ==
LOC: LAB 08:35
PROVIDERS: ATTEND Internal Medicine
DX: E11.40 Type 2 diabetes mellitus with diabetic neuropathy, unspecified (principal); E55.9 Vitamin D deficiency, unspecified; E78.5 Hyperlipidemia, unspecified; E04.9 Nontoxic goiter, unspecified

== ENCOUNTER → 2022-11-14 | Outpatient (CLI) | payer OTHER ==
[2022-11-14 10:36] LABS: HEMATOCRIT 36.2 % (37.0-47.0); MEAN CELL VOLUME 97.8 fl (81.0-99.0); MEAN CORPUSCULAR HGB 31.6 pg (27.0-31.0); MEAN CORPUSCULAR HGB CONC 32.3 g/dl (33.0-37.0); MEAN PLATELET VOLUME 10.8 fl (9.6-12.3); RED BLOOD COUNT 3.7 10*6/uL (4.10-5.10); RED CELL DISTRI WIDTH 13.5 % (0-14.5); WHITE BLOOD COUNT 18.9 10*3/uL (4.8-10.8)
[2022-11-14 10:51] LABS: ALKALINE PHOSPHATASE 50 U/L (46-116); BUN 6 mg/dl (9-23); CHLORIDE 105 mmol/L (98-107); POTASSIUM 3.8 mmol/L (3.4-5.1); SGPT/ALT 20 U/L (10-49); TOTAL PROTEIN 7.5 gm/dL (6.0-8.0)
== END | disposition home or self-care (01) ==
LOC: LAB 02:12
PROVIDERS: ATTEND Internal Medicine Gastroenterology
DX: D64.9 Anemia, unspecified (principal)

== ENCOUNTER → 2022-11-21 | Outpatient (CLI) | payer OTHER | END | disposition home or self-care (01) | LOC: NM 11-20 07:00 | PROVIDERS: ATTEND Nurse Practitioner Family | DX: K31.84 Gastroparesis (principal) ==

== ENCOUNTER → 2022-12-19 | Outpatient (CLI) | payer OTHER ==
[2022-12-19 13:27] LABS: BILIRUBIN Negative (Negative); BLOOD Negative (Negative); CLARITY Cloudy (Clear); COLOR Yellow (Yellow); GLUCOSE Negative (Negative); KETONE Negative (Negative); LEUKO ESTERASE Trace (Negative); NITRITE Negative (Negative); SPECIFIC GRAVITY 1.015 (1.001-1.030); UROBILINOGEN 0.2 E.U./dl (0.0-1.0)
[2022-12-19 13:37] LABS: BACTERIA 2+; EPITHELIAL CELLS 16-20
[2022-12-19 13:50] LABS: ALKALINE PHOSPHATASE 51 U/L (46-116); BUN 10 mg/dl (9-23); CHLORIDE 108 mmol/L (98-107); CHOLESTEROL 126 mg/dL (<200); FREE T4 1.11 ng/dl (0.89-1.76); LDL CHOLESTEROL 54 mg/dL (9-159); SGPT/ALT 14 U/L (10-49); THYROID STIM HORMONE (HS) 1.539 uIU/ml (0.550-4.780); TOTAL PROTEIN 7.4 gm/dL (6.0-8.0); TRIGLYCERIDES 93 mg/dl (<150)
[2022-12-19 14:23] LABS: VITAMIN D, 25-HYDROXY 65.1 ng/mL (30-100)
== END | disposition home or self-care (01) ==
LOC: LAB 00:29
PROVIDERS: Internal Medicine; ATTEND Nurse Practitioner Family
DX: M47.817 Spondylosis without myelopathy or radiculopathy, lumbosacral region (principal); M47.812 Spondylosis without myelopathy or radiculopathy, cervical region; M41.82 Other forms of scoliosis, cervical region; M25.78 Osteophyte, vertebrae; E11.40 Type 2 diabetes mellitus with diabetic neuropathy, unspecified; E55.9 Vitamin D deficiency, unspecified; E78.5 Hyperlipidemia, unspecified; E04.9 Nontoxic goiter, unspecified

== ENCOUNTER 2023-01-01 15:00 | Emergency (ER) | payer OTHER ==
[~2023-01-01] VITALS: Ht 175.2 cm; Wt 58.1 kg
[2023-01-01 16:15] LABS: BASO # 0.1 10*3/uL (0.0-0.1); BASO % 0.6 % (0.0-1.0); EOS # 0.5 10*3/uL (0.0-0.4); EOS % 3.6 % (1.0-4.0); HEMATOCRIT 31.7 % (37.0-47.0); LYMPH % 27.9 % (27.0-41.0); MEAN CELL VOLUME 94.9 fl (81.0-99.0); MEAN CORPUSCULAR HGB CONC 33.8 g/dl (33.0-37.0); MEAN PLATELET VOLUME 9.8 fl (9.6-12.3); MONO # 1.1 10*3/uL (0.1-1.0); MONO % 7.9 % (3.0-9.0); NEUT # 8.4 10*3/uL (2.3-7.9); NEUT % 59.6 % (47.0-73.0); PLATELET COUNT AUTOMATED 518 10*3/uL (130-400); RED BLOOD COUNT 3.34 10*6/uL (4.10-5.10); RED CELL DISTRI WIDTH 13.1 % (0-14.5); WHITE BLOOD COUNT 14.1 10*3/uL (4.8-10.8)
[2023-01-01 16:31] LABS: ACT PARTIAL THROMBO TIME 28.7 SECONDS (20.0-32.1)
[2023-01-01 16:40] LABS: ALKALINE PHOSPHATASE 89 U/L (46-116); BETA-HCG, QUANT < 3.0 mIU/mL (0-10); BUN 8 mg/dl (9-23); CHLORIDE 110 mmol/L (98-107); POTASSIUM 3.8 mmol/L (3.4-5.1); SGPT/ALT 23 U/L (10-49); TOTAL PROTEIN 7.2 gm/dL (6.0-8.0)
[2023-01-01] MEDS ORDERED: CEPHALEXIN500 M1 PO (17:38)
== END 2023-01-01 18:27 | disposition home or self-care (01) ==
LOC: ED 15:00
PROVIDERS: Internal Medicine
DX: S01.111A Laceration without foreign body of right eyelid and periocular area, initial encounter (principal); Z88.1 Allergy status to other antibiotic agents; Z79.899 Other long term (current) drug therapy; Z90.49 Acquired absence of other specified parts of digestive tract; Z98.890 Other specified postprocedural states; F17.200 Nicotine dependence, unspecified, uncomplicated; W18.39XA Other fall on same level, initial encounter; Y93.89 Activity, other specified; Y92.89 Other specified places as the place of occurrence of the external cause; Y99.8 Other external cause status

== ENCOUNTER 2023-01-23 17:37 | Emergency (ER) | payer OTHER ==
[~2023-01-23] VITALS: Ht 177.8 cm; Wt 54.4 kg
[~2023-01-23 17:37] MED LIST changes: +CEPHALEXIN500 M1 PO
[2023-01-23 18:29] LABS: BASO % 0.4 % (0.0-1.0); EOS % 0.3 % (1.0-4.0); HEMATOCRIT 33.8 % (37.0-47.0); LYMPH # 2.5 10*3/uL (1.3-4.4); LYMPH % 24.2 % (27.0-41.0); MEAN CELL VOLUME 91.8 fl (81.0-99.0); MEAN CORPUSCULAR HGB 32.1 pg (27.0-31.0); MEAN CORPUSCULAR HGB CONC 34.9 g/dl (33.0-37.0); MEAN PLATELET VOLUME 9.3 fl (9.6-12.3); MONO # 1.4 10*3/uL (0.1-1.0); MONO % 13.6 % (3.0-9.0); NEUT # 6.3 10*3/uL (2.3-7.9); NEUT % 61.1 % (47.0-73.0); PLATELET COUNT AUTOMATED 553 10*3/uL (130-400); RED BLOOD COUNT 3.68 10*6/uL (4.10-5.10); WHITE BLOOD COUNT 10.2 10*3/uL (4.8-10.8)
[2023-01-23 18:44] LABS: ALKALINE PHOSPHATASE 77 U/L (46-116); BUN 8 mg/dl (9-23); CHLORIDE 102 mmol/L (98-107); LIPASE 31 U/L (12-53); SGPT/ALT 24 U/L (10-49); TOTAL PROTEIN 8.2 gm/dL (6.0-8.0)
[2023-01-23 19:39] LABS: BILIRUBIN Negative (Negative); BLOOD Negative (Negative); CLARITY Clear (Clear); COLOR Yellow (Yellow); GLUCOSE Negative (Negative); KETONE 1+ (Negative); LEUKO ESTERASE 2+ (Negative); NITRITE Negative (Negative); UROBILINOGEN 0.2 E.U./dl (0.0-1.0)
[2023-01-23 19:40] LABS: PH >= 9.0 (4.5-8.0)
[2023-01-23 19:47] LABS: BACTERIA 1+; EPITHELIAL CELLS 16-20; MUCOUS 1+; URINE AMPHETAMINES Negative (1000ng/ml); URINE BARBITURATES Negative (200ng/ml); URINE BENZODIAZEPINES Negative (200ng/ml); URINE CANNABINOIDS (THC) Positive (50ng/ml); URINE COCAINE Negative (300ng/ml); URINE METHADONE Negative (300ng/ml); URINE OPIATES Negative (300ng/ml); URINE PHENCYCLIDINE Negative (25ng/ml)
[2023-01-23] MEDS ORDERED: CIPRO500 MG PO (22:39)
== END 2023-01-23 22:50 | disposition home or self-care (01) ==
LOC: ED 17:37
PROVIDERS: Internal Medicine
DX: N39.0 Urinary tract infection, site not specified (principal); E87.6 Hypokalemia; E83.42 Hypomagnesemia; N20.0 Calculus of kidney; D64.9 Anemia, unspecified; Z88.1 Allergy status to other antibiotic agents; Z79.899 Other long term (current) drug therapy; Z90.49 Acquired absence of other specified parts of digestive tract; F17.200 Nicotine dependence, unspecified, uncomplicated

== ENCOUNTER 2023-02-05 11:19 | Emergency (ER) | payer OTHER ==
[~2023-02-05 11:19] MED LIST changes: +CIPRO500 MG PO
[2023-02-05 12:13] LABS: BILIRUBIN Negative (Negative); BLOOD Negative (Negative); CLARITY Clear (Clear); COLOR Yellow (Yellow); GLUCOSE Negative (Negative); KETONE Negative (Negative); LEUKO ESTERASE Trace (Negative); NITRITE Negative (Negative); SPECIFIC GRAVITY <= 1.005 (1.001-1.030); UROBILINOGEN 0.2 E.U./dl (0.0-1.0)
[2023-02-05 12:21] LABS: URINE AMPHETAMINES Negative (1000ng/ml); URINE BARBITURATES Negative (200ng/ml); URINE BENZODIAZEPINES Negative (200ng/ml); URINE CANNABINOIDS (THC) Positive (50ng/ml); URINE COCAINE Positive (300ng/ml); URINE METHADONE Negative (300ng/ml); URINE OPIATES Negative (300ng/ml); URINE PHENCYCLIDINE Negative (25ng/ml)
[2023-02-05 12:32] LABS: PH > 8.0 (4.5-8.0)
[2023-02-05 12:40] LABS: BACTERIA TRACE
[2023-02-05 12:41] LABS: BASO # 0.1 10*3/uL (0.0-0.1); BASO % 0.5 % (0.0-1.0); EOS # 0.3 10*3/uL (0.0-0.4); EOS % 1.7 % (1.0-4.0); HEMATOCRIT 32.7 % (37.0-47.0); LYMPH # 4.1 10*3/uL (1.3-4.4); LYMPH % 24.8 % (27.0-41.0); MEAN CELL VOLUME 94.8 fl (81.0-99.0); MEAN CORPUSCULAR HGB 31.9 pg (27.0-31.0); MEAN CORPUSCULAR HGB CONC 33.6 g/dl (33.0-37.0); MEAN PLATELET VOLUME 9.2 fl (9.6-12.3); MONO # 1.4 10*3/uL (0.1-1.0); MONO % 8.6 % (3.0-9.0); NEUT # 10.6 10*3/uL (2.3-7.9); PLATELET COUNT AUTOMATED 489 10*3/uL (130-400); RED BLOOD COUNT 3.45 10*6/uL (4.10-5.10); WHITE BLOOD COUNT 16.5 10*3/uL (4.8-10.8)
[2023-02-05 12:59] LABS: ALKALINE PHOSPHATASE 67 U/L (46-116); BETA-HCG, QUANT < 3.0 mIU/mL (0-10); BUN 7 mg/dl (9-23); CHLORIDE 104 mmol/L (98-107); LIPASE 23 U/L (12-53); POTASSIUM 3.4 mmol/L (3.4-5.1); SGPT/ALT 19 U/L (10-49); TOTAL PROTEIN 7.1 gm/dL (6.0-8.0)
[2023-02-05 13:06] LABS: ACT PARTIAL THROMBO TIME 27.9 SECONDS (20.0-32.1)
== END 2023-02-05 15:34 | disposition home or self-care (01) ==
LOC: ED 11:19
PROVIDERS: Emergency Medicine
DX: R42 Dizziness and giddiness (principal); R11.0 Nausea; F19.10 Other psychoactive substance abuse, uncomplicated; F41.9 Anxiety disorder, unspecified; F32.A Depression, unspecified; E78.5 Hyperlipidemia, unspecified; E11.9 Type 2 diabetes mellitus without complications; Z88.1 Allergy status to other antibiotic agents; Z90.49 Acquired absence of other specified parts of digestive tract; Z98.890 Other specified postprocedural states; Z79.4 Long term (current) use of insulin; Z79.899 Other long term (current) drug therapy

== ENCOUNTER → 2023-04-20 | Outpatient (CLI) | payer OTHER | END | disposition home or self-care (01) | LOC: RAD 01:22 | PROVIDERS: ATTEND Nurse Practitioner Family | DX: M25.551 Pain in right hip (principal) ==

== ENCOUNTER → 2023-05-10 | Outpatient (CLI) | payer OTHER ==
[2023-05-10 08:29] LABS: BILIRUBIN Negative (Negative); BLOOD Negative (Negative); CLARITY Turbid (Clear); COLOR Yellow (Yellow); GLUCOSE 2+ (Negative); KETONE Negative (Negative); LEUKO ESTERASE 1+ (Negative); NITRITE Negative (Negative); PH 7.5 (4.5-8.0); SPECIFIC GRAVITY 1.015 (1.001-1.030); UROBILINOGEN 0.2 E.U./dl (0.0-1.0)
[2023-05-10 09:12] LABS: VITAMIN D, 25-HYDROXY 45.8 ng/mL (30-100)
[2023-05-10 09:13] LABS: ALKALINE PHOSPHATASE 187 U/L (46-116); BUN 8 mg/dl (9-23); CHLORIDE 105 mmol/L (98-107); CHOLESTEROL 127 mg/dL (<200); FREE T4 0.98 ng/dl (0.89-1.76); LDL CHOLESTEROL 49 mg/dL (9-159); POTASSIUM 3.7 mmol/L (3.4-5.1); SGPT/ALT 13 U/L (10-49); TOTAL PROTEIN 7.9 gm/dL (6.0-8.0); TRIGLYCERIDES 80 mg/dl (<150)
== END | disposition home or self-care (01) ==
LOC: LAB 00:27
PROVIDERS: ATTEND Internal Medicine
DX: E11.40 Type 2 diabetes mellitus with diabetic neuropathy, unspecified (principal); E61.1 Iron deficiency; E11.9 Type 2 diabetes mellitus without complications; E55.9 Vitamin D deficiency, unspecified; E04.9 Nontoxic goiter, unspecified; E78.5 Hyperlipidemia, unspecified

== ENCOUNTER 2023-07-12 12:32 | Emergency (ER) | payer OTHER ==
[~2023-07-12] VITALS: Wt 54.4 kg
== END 2023-07-12 12:49 | disposition home or self-care (01) ==
LOC: ED 12:32
DX: F41.9 Anxiety disorder, unspecified (principal); F32.A Depression, unspecified; E11.9 Type 2 diabetes mellitus without complications; Z79.4 Long term (current) use of insulin; E78.5 Hyperlipidemia, unspecified; Z88.1 Allergy status to other antibiotic agents; Z90.49 Acquired absence of other specified parts of digestive tract; Z98.890 Other specified postprocedural states; F19.10 Other psychoactive substance abuse, uncomplicated; Z72.0 Tobacco use

== ENCOUNTER → 2023-09-20 | Outpatient (CLI) | payer OTHER ==
[2023-09-20 10:06] LABS: BILIRUBIN Negative (Negative); BLOOD Negative (Negative); CLARITY Clear (Clear); COLOR Yellow (Yellow); GLUCOSE Negative (Negative); KETONE Negative (Negative); LEUKO ESTERASE 1+ (Negative); NITRITE Negative (Negative); SPECIFIC GRAVITY 1.015 (1.001-1.030); UROBILINOGEN 0.2 E.U./dl (0.0-1.0)
[2023-09-20 10:15] LABS: BACTERIA 2+
[2023-09-20 10:16] LABS: HYALINE CAST 0-2
[2023-09-20 10:28] LABS: ALKALINE PHOSPHATASE 248 U/L (46-116); BUN 13 mg/dl (9-23); CHLORIDE 102 mmol/L (98-107); CHOLESTEROL 171 mg/dL (<200); LDL CHOLESTEROL 88 mg/dL (9-159); POTASSIUM 4.8 mmol/L (3.4-5.1); SGPT/ALT 13 U/L (5-49); TOTAL PROTEIN 7.6 gm/dL (6.0-8.0); TRIGLYCERIDES 87 mg/dl (<150)
== END | disposition home or self-care (01) ==
LOC: LAB 00:06
PROVIDERS: ATTEND Internal Medicine
DX: E11.9 Type 2 diabetes mellitus without complications (principal); E11.40 Type 2 diabetes mellitus with diabetic neuropathy, unspecified; E04.9 Nontoxic goiter, unspecified; E78.5 Hyperlipidemia, unspecified; E55.9 Vitamin D deficiency, unspecified; E61.1 Iron deficiency

== ENCOUNTER → 2023-12-20 | Outpatient (CLI) | payer OTHER ==
[2023-12-20 09:29] LABS: BILIRUBIN Negative (Negative); BLOOD Negative (Negative); CLARITY Clear (Clear); COLOR Yellow (Yellow); GLUCOSE Negative (Negative); KETONE Negative (Negative); LEUKO ESTERASE Trace (Negative); NITRITE Negative (Negative); PH 7.5 (4.5-8.0); SPECIFIC GRAVITY 1.015 (1.001-1.030); UROBILINOGEN 0.2 E.U./dl (0.0-1.0)
[2023-12-20 09:41] LABS: EPITHELIAL CELLS TNTC; RBC 0-2 rbc/hpf (0-2)
[2023-12-20 09:46] LABS: ALKALINE PHOSPHATASE 317 U/L (46-116); BUN 7 mg/dl (9-23); CHLORIDE 104 mmol/L (98-107); CHOLESTEROL 120 mg/dL (<200); LDL CHOLESTEROL 50 mg/dL (9-159); POTASSIUM 4.2 mmol/L (3.4-5.1); SGPT/ALT 10 U/L (5-49); TOTAL PROTEIN 7.4 gm/dL (6.0-8.0); TRIGLYCERIDES 52 mg/dl (<150)
[2023-12-20 10:08] LABS: VITAMIN D, 25-HYDROXY 33.6 ng/mL (30-100)
== END | disposition home or self-care (01) ==
LOC: LAB 12-18 01:47
PROVIDERS: ATTEND Internal Medicine
DX: E11.9 Type 2 diabetes mellitus without complications (principal); E61.1 Iron deficiency; E55.9 Vitamin D deficiency, unspecified; E04.9 Nontoxic goiter, unspecified; E78.5 Hyperlipidemia, unspecified

== ENCOUNTER 2024-03-26 10:36 | Inpatient (IN) | payer OTHER ==
[~2024-03-26] VITALS: Ht 175.3 cm; Wt 64.9 kg
[2024-03-26 10:44] VITALS: BP 138/69
[2024-03-26] MEDS ORDERED: SODIUM CHLORIDE 0.9% 1,000 ML IV ONE ×2 (11:05→13:45)
[2024-03-26] MEDS ORDERED: Piperacillin Sodium/Tazobact 50 ML IV ONE (11:10)
[2024-03-26] MEDS ORDERED: Vancomycin Hydrochloride 250 ML IV ONE (11:10)
[2024-03-26 11:19] LABS: HEMATOCRIT 35.2 % (37.0-47.0); MANUAL DIFF REFLEX YES; MEAN CELL VOLUME 89.1 fl (81.0-99.0); MEAN CORPUSCULAR HGB 29.4 pg (27.0-31.0); PLATELET COUNT AUTOMATED 488 10*3/uL (130-400); RED BLOOD COUNT 3.95 10*6/uL (4.10-5.10); RED CELL DISTRI WIDTH 12.7 % (0-14.5); WHITE BLOOD COUNT 20.2 10*3/uL (4.8-10.8)
[2024-03-26 11:30] VITALS: BP 123/47
[2024-03-26 11:40] LABS: ALKALINE PHOSPHATASE 252 U/L (46-116); BASOPHILS 1 % (0-1); BUN 9 mg/dl (9-23); CHLORIDE 100 mmol/L (98-107); POTASSIUM 4.2 mmol/L (3.4-5.1); SGPT/ALT 11 U/L (5-49); TOTAL CELLS COUNTED 100 #CELLS; TOTAL PROTEIN 7.8 gm/dL (6.0-8.0)
[2024-03-26 11:41] LABS: PLATELET SUFFICIENCY HIGH (NORMAL)
[2024-03-26] MEDS ORDERED: BUPROPION XL300 MG PO (11:44)
[2024-03-26] MEDS ORDERED: BUSPIRONE HCL15 MG PO (11:45)
[2024-03-26] MEDS ORDERED: DOXEPIN HCL10 MG PO (11:46)
[2024-03-26] MEDS ORDERED: fentaNYL CITRATE/PF 50 MCG/ML SYRINGE IV ONE (12:00)
[2024-03-26] MEDS ORDERED: ACETAMINOPHEN 325 MG TAB PO PRN (14:35)
[2024-03-26] MEDS ORDERED: ACETAMINOPHEN 650 MG SUPP R PRN (14:35)
[2024-03-26] MEDS ORDERED: Ondansetron Hydrochloride 4 MG/2 ML VIAL IV PRN (14:35)
[2024-03-26] MEDS ORDERED: Magnesium Hydroxide 30 ML UDC PO PRN (14:35)
[2024-03-26] MEDS ORDERED: BISACODYL 10 MG SUPP R PRN (14:35)
[2024-03-26] MEDS ORDERED: Acetaminophen/Hydrocodone 5 MG/325 MG TABLET PO PRN (14:35)
[2024-03-26] MEDS ORDERED: BISACODYL 5 MG TAB PO PRN (14:35)
[2024-03-26 16:07] VITALS: BP 132/60
[2024-03-26 16:36] LABS: URINE AMPHETAMINES Negative (1000ng/ml); URINE BARBITURATES Negative (200ng/ml); URINE BENZODIAZEPINES Negative (200ng/ml); URINE CANNABINOIDS (THC) Positive (50ng/ml); URINE COCAINE Negative (300ng/ml); URINE METHADONE Negative (300ng/ml); URINE OPIATES Negative (300ng/ml); URINE PHENCYCLIDINE Negative (25ng/ml)
[2024-03-26 17:25] VITALS: BP 138/58
[2024-03-26] MEDS ORDERED: Piperacillin Sodium/Tazobact 50 ML IV SCH (18:00)
[2024-03-26] MEDS ORDERED: GABAPENTIN 400 MG CAP PO SCH (18:00)
[2024-03-26] MEDS ORDERED: buPROPion XL 150 MG TAB PO SCH (18:00)
[2024-03-26] MEDS ORDERED: busPIRone Hydrochloride 15 MG TAB PO SCH (18:00)
[2024-03-26 20:00] VITALS: BP 129/67
[2024-03-26] MEDS ORDERED: Metoclopramide Hydrochloride 5 MG TAB PO SCH (22:00)
[2024-03-26] MEDS ORDERED: ATORVASTATIN CALCIUM 40 MG TABLET PO SCH (22:00)
[2024-03-27] VITALS (9 sets, daily range): BP systolic 113–144; BP diastolic 61–89
[2024-03-27] MEDS ORDERED: Vancomycin Hydrochloride 1,000 MG in SODIUM CHLORIDE 0.9% 250 ML IV SCH (02:00)
[2024-03-27 06:16] LABS: HEMATOCRIT 37.8 % (37.0-47.0); MEAN CELL VOLUME 90.4 fl (81.0-99.0); MEAN CORPUSCULAR HGB 28.9 pg (27.0-31.0); MEAN PLATELET VOLUME 10.3 fl (9.6-12.3); PLATELET COUNT AUTOMATED 495 10*3/uL (130-400); RED BLOOD COUNT 4.18 10*6/uL (4.10-5.10); RED CELL DISTRI WIDTH 12.8 % (0-14.5)
[2024-03-27 06:19] LABS: MANUAL DIFF REFLEX YES
[2024-03-27 07:00] LABS: BURR CELLS FEW; POLYCHROMASIA SLIGHT; TARGET CELLS FEW; TOTAL CELLS COUNTED 100 #CELLS
[2024-03-27 07:01] LABS: PLATELET SUFFICIENCY HIGH (NORMAL); ROULEAUX SLIGHT
[2024-03-27 07:24] LABS: ALKALINE PHOSPHATASE 231 U/L (46-116); BUN 7 mg/dl (9-23); CHLORIDE 99 mmol/L (98-107); POTASSIUM 3.9 mmol/L (3.4-5.1); SGPT/ALT 9 U/L (5-49); TOTAL PROTEIN 7.4 gm/dL (6.0-8.0)
[2024-03-27] MEDS ORDERED: buPROPion XL 150 MG TAB PO SCH (10:00)
[2024-03-27] MEDS ORDERED: Enoxaparin Sodium 40 MG/0.4 ML SYR SC SCH (10:00)
[2024-03-27] MEDS ORDERED: Insulin Glargine, Recombinan 1 UNIT/0.01 ML SC SCH (10:00)
[2024-03-27] MEDS ORDERED: DEXTROSE 10 % IN WATER 250 ML IV PRN (11:45)
[2024-03-27] MEDS ORDERED: Vancomycin Hydrochloride 1,000 MG VIAL T ONE (12:30)
[2024-03-27] MEDS ORDERED: SODIUM CHLORIDE 0.9% 1,000 ML IV ONE ×2 (12:34→12:40)
[2024-03-27] MEDS ORDERED: BUPIVACAINE 0.5% 50 ML VIAL ONE (12:58)
[2024-03-27] MEDS ORDERED: HYDROmorphONE Hydrochloride 1 MG/ML SYR IV ONE ×2 (14:40→14:45)
[2024-03-27] MEDS ORDERED: HYDROmorphONE Hydrochloride 1 ML IV ONE ×2 (14:43→14:56)
[2024-03-27] MEDS ORDERED: INSULIN LISPRO 1 UNIT/0.01 ML SQ SCH (16:30)
[2024-03-27] MEDS ORDERED: fentaNYL CITRATE 100 MCG/2 ML VIAL IV ONE (17:51)
[2024-03-27] MEDS ORDERED: Midazolam Hydrochloride 2 MG/2 ML VIAL IV ONE (17:51)
[2024-03-27] MEDS ORDERED: Ketamine Hydrochloride 500 MG/10 ML VIAL IV ONE (17:51)
[2024-03-27] MEDS ORDERED: PROPOFOL 200 MG/20 ML VIAL IV ONE (17:51)
[2024-03-28] VITALS: BP 115/50
[2024-03-28 07:03] LABS: BUN 8 mg/dl (9-23); CHLORIDE 99 mmol/L (98-107); POTASSIUM 4.1 mmol/L (3.4-5.1)
[2024-03-28 07:43] LABS: HEMATOCRIT 33.6 % (37.0-47.0); MANUAL DIFF REFLEX YES; MEAN CELL VOLUME 90.8 fl (81.0-99.0); MEAN CORPUSCULAR HGB 29.5 pg (27.0-31.0); MEAN CORPUSCULAR HGB CONC 32.4 g/dl (33.0-37.0); MEAN PLATELET VOLUME 10.3 fl (9.6-12.3); PLATELET COUNT AUTOMATED 474 10*3/uL (130-400); RED CELL DISTRI WIDTH 12.8 % (0-14.5); WHITE BLOOD COUNT 15.1 10*3/uL (4.8-10.8)
[2024-03-28 08:00] VITALS: BP 117/61
[2024-03-28 08:44] LABS: POLYCHROMASIA SLIGHT; TOTAL CELLS COUNTED 100 #CELLS
[2024-03-28 08:45] LABS: BURR CELLS MODERATE; PLATELET SUFFICIENCY HIGH (NORMAL); ROULEAUX SLIGHT; TARGET CELLS FEW
[2024-03-28] MEDS ORDERED: Acetaminophen/Hydrocodone ES 7.5/325 tablet PO PRN (09:30)
[2024-03-28 10:08] LABS: ACID FAST SPEC PROCESSING Tissue Grinding (.)
[2024-03-28 10:08] LABS: ACID FAST SPEC PROCESSING Tissue Grinding (.)
[2024-03-28 12:00] VITALS: BP 116/51
[2024-03-28 16:00] VITALS: BP 118/78
[2024-03-28 20:00] VITALS: BP 127/61
[2024-03-29] VITALS: BP 124/59
[2024-03-29 06:12] LABS: BUN 12 mg/dl (9-23); CHLORIDE 99 mmol/L (98-107); POTASSIUM 4.1 mmol/L (3.4-5.1)
[2024-03-29 06:14] LABS: HEMATOCRIT 32.7 % (37.0-47.0); MEAN CELL VOLUME 89.3 fl (81.0-99.0); MEAN CORPUSCULAR HGB 29.2 pg (27.0-31.0); MEAN CORPUSCULAR HGB CONC 32.7 g/dl (33.0-37.0); MEAN PLATELET VOLUME 10.3 fl (9.6-12.3); PLATELET COUNT AUTOMATED 505 10*3/uL (130-400); RED BLOOD COUNT 3.66 10*6/uL (4.10-5.10); RED CELL DISTRI WIDTH 12.5 % (0-14.5); WHITE BLOOD COUNT 13.5 10*3/uL (4.8-10.8)
[2024-03-29 06:16] LABS: MANUAL DIFF REFLEX YES
[2024-03-29 07:53] LABS: TOTAL CELLS COUNTED 100 #CELLS
[2024-03-29 07:54] LABS: PLATELET SUFFICIENCY HIGH (NORMAL); POLYCHROMASIA SLIGHT
[2024-03-29 08:00] VITALS: BP 133/90
[2024-03-29] MEDS ORDERED: Ketorolac Tromethamine 15 MG/ML VIAL IV PRN (10:30)
[2024-03-29] MEDS ORDERED: Acetaminophen/Oxycodone 5 MG/325 MG TABLET PO PRN (10:30)
[2024-03-29] MEDS ORDERED: INSULIN LISPRO 1 UNIT/0.01 ML SQ SCH (11:30)
[2024-03-29 12:00] VITALS: BP 119/50
[2024-03-29] MEDS ORDERED: ceFAZolin sodium 2 GM in SYRINGE INFUSION 20 ML IV SCH (18:00)
[2024-03-29 20:00] VITALS: BP 116/70
[2024-03-29] MEDS ORDERED: CEPHALEXIN500 M1 PO (20:11)
[2024-03-29] MEDS ORDERED: DALVANCE500 MG IV (20:11)
[2024-03-30] VITALS: BP 118/58
[2024-03-30 06:38] LABS: MEAN CORPUSCULAR HGB CONC 32.3 g/dl (33.0-37.0); PLATELET COUNT AUTOMATED 560 10*3/uL (130-400); RED BLOOD COUNT 3.89 10*6/uL (4.10-5.10); RED CELL DISTRI WIDTH 12.5 % (0-14.5); WHITE BLOOD COUNT 14.7 10*3/uL (4.8-10.8)
[2024-03-30 06:39] LABS: MANUAL DIFF REFLEX YES
[2024-03-30 07:12] LABS: BUN 14 mg/dl (9-23); CHLORIDE 97 mmol/L (98-107); POTASSIUM 4.3 mmol/L (3.4-5.1)
[2024-03-30 07:43] LABS: PLATELET SUFFICIENCY HIGH (NORMAL); TOTAL CELLS COUNTED 100 #CELLS
[2024-03-30 08:26] VITALS: BP 109/60
[2024-03-30 12:12] VITALS: BP 130/60
[2024-03-30 16:00] VITALS: BP 120/60
[2024-03-30 20:00] VITALS: BP 113/48
[2024-03-30] MEDS ORDERED: Insulin Glargine, Recombinan 1 UNIT/0.01 ML SC SCH (22:00)
[2024-03-31] VITALS: BP 115/49
[2024-03-31 06:51] LABS: HEMATOCRIT 32.6 % (37.0-47.0); MEAN CELL VOLUME 88.6 fl (81.0-99.0); MEAN CORPUSCULAR HGB 29.9 pg (27.0-31.0); MEAN CORPUSCULAR HGB CONC 33.7 g/dl (33.0-37.0); MEAN PLATELET VOLUME 9.9 fl (9.6-12.3); PLATELET COUNT AUTOMATED 567 10*3/uL (130-400); RED BLOOD COUNT 3.68 10*6/uL (4.10-5.10); RED CELL DISTRI WIDTH 12.7 % (0-14.5); WHITE BLOOD COUNT 15.7 10*3/uL (4.8-10.8)
[2024-03-31 06:53] LABS: MANUAL DIFF REFLEX YES
[2024-03-31 07:16] LABS: BUN 13 mg/dl (9-23); CHLORIDE 100 mmol/L (98-107); POTASSIUM 4.3 mmol/L (3.4-5.1)
[2024-03-31 07:22] LABS: ATYPICAL LYMPHS 1 % (0-0); BASOPHILS 2 % (0-1); PLATELET SUFFICIENCY HIGH (NORMAL); POLYCHROMASIA SLIGHT; TOTAL CELLS COUNTED 100 #CELLS
[2024-03-31 07:23] LABS: BURR CELLS FEW; TARGET CELLS FEW
[2024-03-31 08:00] VITALS: BP 122/51
[2024-03-31] MEDS ORDERED: DALVANCE500 MG IV (10:15)
[2024-03-31] MEDS ORDERED: PERCOCET 5-3251 EACH PO (11:14)
[2024-03-31 12:00] VITALS: BP 116/50
[2024-04-01] MEDS ORDERED: WELLBUTRIN XL150 MG PO (12:55)
[2024-04-01] MEDS ORDERED: WELLBUTRIN XL300 MG PO (12:58)
[2024-04-01] MEDS ORDERED: DOXEPIN25 MG PO (12:59)
== END 2024-03-31 13:59 | disposition home or self-care (01) | DRG 349 ==
LOC: ED 10:36 → EDHOLD 14:04 → 4E 14:04
PROVIDERS: Emergency Medicine; Internal Medicine; Podiatrist; Student in an Organized Health Care Education/Training Program; ADMIT Family Medicine; ATTEND Family Medicine
PROC: 0YPB0YZ Removal of Other Device from Left Lower Extremity, Open Approach (ICD-10-PCS; principal; 2024-03-27)
PROC: 0QBK0ZX Excision of Left Fibula, Open Approach, Diagnostic (ICD-10-PCS; 2024-03-27)
DX: T84.7XXA Infection and inflammatory reaction due to other internal orthopedic prosthetic devices, implants and grafts, initial encounter (principal); A41.9 Sepsis, unspecified organism; M86.8X7 Other osteomyelitis, ankle and foot; L03.116 Cellulitis of left lower limb; E87.1 Hypo-osmolality and hyponatremia; S81.002A Unspecified open wound, left knee, initial encounter; S81.001A Unspecified open wound, right knee, initial encounter; K31.84 Gastroparesis; E11.40 Type 2 diabetes mellitus with diabetic neuropathy, unspecified; F43.10 Post-traumatic stress disorder, unspecified; H05.232 Hemorrhage of left orbit; D75.839 Thrombocytosis, unspecified; D64.9 Anemia, unspecified; E11.43 Type 2 diabetes mellitus with diabetic autonomic (poly)neuropathy; F33.9 Major depressive disorder, recurrent, unspecified; F17.210 Nicotine dependence, cigarettes, uncomplicated; E11.69 Type 2 diabetes mellitus with other specified complication; E11.65 Type 2 diabetes mellitus with hyperglycemia; Z88.1 Allergy status to other antibiotic agents; Z90.49 Acquired absence of other specified parts of digestive tract; Z90.81 Acquired absence of spleen; Z81.8 Family history of other mental and behavioral disorders; Z83.3 Family history of diabetes mellitus; S02.2XXG Fracture of nasal bones, subsequent encounter for fracture with delayed healing; Z79.4 Long term (current) use of insulin

== ENCOUNTER → 2024-04-30 | Outpatient (CLI) | payer OTHER ==
[~2024-04-30] MED LIST changes: +BUPROPION XL300 MG PO; +BUSPIRONE HCL15 MG PO; +DALVANCE500 MG IV; +DOXEPIN HCL10 MG PO; +DOXEPIN25 MG PO; +PERCOCET 5-3251 EACH PO; +WELLBUTRIN XL300 MG PO
[2024-04-30 07:57] LABS: BILIRUBIN Negative (Negative); BLOOD Negative (Negative); CLARITY Cloudy (Clear); COLOR Yellow (Yellow); GLUCOSE 3+ (Negative); KETONE Negative (Negative); LEUKO ESTERASE Trace (Negative); NITRITE Negative (Negative); PH 6.5 (4.5-8.0); SPECIFIC GRAVITY 1.015 (1.001-1.030); UROBILINOGEN 0.2 E.U./dl (0.0-1.0)
[2024-04-30 08:14] LABS: BACTERIA 1+; EPITHELIAL CELLS 31-40; YEAST 1+
[2024-04-30 08:26] LABS: ALKALINE PHOSPHATASE 180 U/L (46-116); BUN 14 mg/dl (9-23); CHLORIDE 98 mmol/L (98-107); CHOLESTEROL 153 mg/dL (<200); LDL CHOLESTEROL 69 mg/dL (9-159); POTASSIUM 4.5 mmol/L (3.4-5.1); SGPT/ALT 15 U/L (5-49); TOTAL PROTEIN 7.8 gm/dL (6.0-8.0); TRIGLYCERIDES 100 mg/dl (<150)
[2024-04-30 08:42] LABS: VITAMIN D, 25-HYDROXY 62.2 ng/mL (30-100)
== END | disposition home or self-care (01) ==
LOC: LAB 01:49
PROVIDERS: ATTEND Internal Medicine
DX: E11.9 Type 2 diabetes mellitus without complications (principal); E11.40 Type 2 diabetes mellitus with diabetic neuropathy, unspecified; E04.9 Nontoxic goiter, unspecified; E78.5 Hyperlipidemia, unspecified; E55.9 Vitamin D deficiency, unspecified; E61.1 Iron deficiency

== ENCOUNTER 2024-06-23 07:18 | Emergency (ER) | payer OTHER ==
[~2024-06-23] VITALS: Ht 175.2 cm; Wt 68.0 kg
[~2024-06-23 07:18] MED LIST changes: -ADDERALL5 MG PO; -ANTIBIOTIC28.4 GM T; -SILVADENE20 GM T; -TRAMADOL HCL50 MG PO; -VIBRAMYCIN100 MG PO; -XARELTO10 MG PO; -XEROFORM PETRO1 EAC4 T
[2024-06-23] MEDS ORDERED: ADDERALL5 MG PO (07:31)
[2024-06-23] MEDS ORDERED: XEROFORM PETRO1 EAC4 T (07:37)
[2024-06-23] MEDS ORDERED: SILVADENE20 GM T (07:37)
[2024-06-23] MEDS ORDERED: ANTIBIOTIC28.4 GM T (07:37)
[2024-06-23] MEDS ORDERED: SILVER SULFADIAZINE 25 GM TUBE T ONE (07:45)
[2024-06-23] MEDS ORDERED: Bacitracin Zinc 14 GM TUBE T ONE (07:45)
[2024-06-25] MEDS ORDERED: XARELTO10 MG PO (10:56)
[2024-06-25] MEDS ORDERED: VIBRAMYCIN100 MG PO (10:56)
[2024-06-25] MEDS ORDERED: TRAMADOL HCL50 MG PO (10:56)
== END 2024-06-23 08:17 | disposition home or self-care (01) ==
LOC: ED 07:18
DX: T23.201A Burn of second degree of right hand, unspecified site, initial encounter (principal); T31.0 Burns involving less than 10% of body surface; F41.9 Anxiety disorder, unspecified; F32.A Depression, unspecified; E11.9 Type 2 diabetes mellitus without complications; Z79.4 Long term (current) use of insulin; E78.5 Hyperlipidemia, unspecified; F19.10 Other psychoactive substance abuse, uncomplicated; Z88.1 Allergy status to other antibiotic agents; Z90.49 Acquired absence of other specified parts of digestive tract; Z98.890 Other specified postprocedural states; Z72.0 Tobacco use; X10.2XXA Contact with fats and cooking oils, initial encounter; Y93.G3 Activity, cooking and baking; Y92.89 Other specified places as the place of occurrence of the external cause; Y99.8 Other external cause status

== ENCOUNTER → 2024-06-23 | Outpatient (CLI) | payer OTHER ==
[~2024-06-23] MED LIST changes: +ADDERALL5 MG PO; +ANTIBIOTIC28.4 GM T; +CALCIUM CITRATE; +DONEPEZIL HYDROC5 MG PO; +FOLBEE; +IRON325 M1 PO; +JARDIANCE10 MG PO; +LEVOTHYROXINE25 MCG PO; +PANTOPRAZOLE SO40 MG PO; +SILVADENE20 GM T; +TRAMADOL HCL50 MG PO; +VIBRAMYCIN100 MG PO; +VIT D; +XARELTO10 MG PO; +XEROFORM PETRO1 EAC4 T
[2024-06-23 08:10] LABS: HEMATOCRIT 40.9 % (37.0-47.0); MEAN CELL VOLUME 91.3 fl (81.0-99.0); MEAN CORPUSCULAR HGB 29.9 pg (27.0-31.0); MEAN CORPUSCULAR HGB CONC 32.8 g/dl (33.0-37.0); PLATELET COUNT AUTOMATED 541 10*3/uL (130-400); RED BLOOD COUNT 4.48 10*6/uL (4.10-5.10); RED CELL DISTRI WIDTH 13.1 % (0-14.5); WHITE BLOOD COUNT 17.2 10*3/uL (4.8-10.8)
[2024-06-23 08:11] LABS: MANUAL DIFF REFLEX YES
[2024-06-23 08:40] LABS: ALKALINE PHOSPHATASE 163 U/L (46-116); BUN 12 mg/dl (9-23); CHLORIDE 100 mmol/L (98-107); POTASSIUM 3.8 mmol/L (3.4-5.1); SGPT/ALT 15 U/L (5-49); TOTAL PROTEIN 7.6 gm/dL (6.0-8.0)
[2024-06-23 08:47] LABS: BASOPHILS 2 % (0-1); PLATELET SUFFICIENCY HIGH (NORMAL); POLYCHROMASIA SLIGHT; TARGET CELLS FEW; TOTAL CELLS COUNTED 100 #CELLS
== END | disposition home or self-care (01) ==
LOC: LAB 07:03
PROVIDERS: ATTEND Family Medicine
DX: E78.5 Hyperlipidemia, unspecified (principal); E13.42 Other specified diabetes mellitus with diabetic polyneuropathy; K31.84 Gastroparesis

== ENCOUNTER → 2024-06-25 | Day surgery (SDC) | payer OTHER ==
[2024-06-25] VITALS (9 sets, daily range): BP systolic 116–159; BP diastolic 50–79
[~2024-06-25] VITALS: Ht 175.2 cm; Wt 68.0 kg
[~2024-06-25] MED LIST changes: +ACETAMINOPHEN 100 ML IV ONE; +ADDERALL5 MG PO; +ANTIBIOTIC28.4 GM T; +BUPIVACAINE 0.5% 30 ML IV ONE; +Dexamethasone Sodium Phospha 4 MG/ML VIAL IV ONE; +HYDROmorphONE Hydrochloride 0.5 MG/0.5 ML SYRINGE IV PRN; +HYDROmorphONE Hydrochloride 0.5 MG/0.5 ML SYRINGE ONE; +Ketorolac Tromethamine 30 MG/ML VIAL IV ONE; +Lactated Ringer's Solution 1,000 ML IV ONE; +Lidocaine Hydrochloride 5 ML VIAL IV ONE; +Midazolam Hydrochloride 2 MG/2 ML VIAL IV ONE; +Ondansetron Hydrochloride 4 MG/2 ML VIAL IV ONE; +PROPOFOL 200 MG/20 ML VIAL IV ONE; +Ropivacaine Hydrochloride 5 MG/ML 20 ML AMP IJ ONE; +SEVOFLURANE 250 ML BOT INH ONE; +SILVADENE20 GM T; +TRAMADOL HCL50 MG PO; +VIBRAMYCIN100 MG PO; +Vancomycin Hydrochloride 1,000 MG VIAL IV ONE; +XARELTO10 MG PO; +XEROFORM PETRO1 EAC4 T; +ceFAZolin sodium/sodium chlor 20 ML IV ONE; +fentaNYL CITRATE 100 MCG/2 ML VIAL IV ONE
[2024-06-26 13:07] LABS: ACID FAST SPEC PROCESSING Tissue Grinding (.)
[2024-06-26 13:07] LABS: ACID FAST SPEC PROCESSING Tissue Grinding (.)
== END | disposition home or self-care (01) ==
LOC: SDC 06-23 08:00
PROVIDERS: ATTEND Podiatrist
DX: S81.802A Unspecified open wound, left lower leg, initial encounter (principal); M86.8X6 Other osteomyelitis, lower leg; E11.8 Type 2 diabetes mellitus with unspecified complications; E78.00 Pure hypercholesterolemia, unspecified; J45.909 Unspecified asthma, uncomplicated; E03.9 Hypothyroidism, unspecified; G89.18 Other acute postprocedural pain; F41.9 Anxiety disorder, unspecified; F31.9 Bipolar disorder, unspecified; F17.210 Nicotine dependence, cigarettes, uncomplicated; Z79.4 Long term (current) use of insulin; Z83.3 Family history of diabetes mellitus; X58.XXXA Exposure to other specified factors, initial encounter; Y93.89 Activity, other specified; Y92.89 Other specified places as the place of occurrence of the external cause; Y99.8 Other external cause status

== ENCOUNTER → 2024-06-27 | Outpatient (CLI) | payer OTHER ==
[~2024-06-27] MED LIST changes: -ACETAMINOPHEN 100 ML IV ONE; -BUPIVACAINE 0.5% 30 ML IV ONE; -Dexamethasone Sodium Phospha 4 MG/ML VIAL IV ONE; -HYDROmorphONE Hydrochloride 0.5 MG/0.5 ML SYRINGE IV PRN; -HYDROmorphONE Hydrochloride 0.5 MG/0.5 ML SYRINGE ONE; -Ketorolac Tromethamine 30 MG/ML VIAL IV ONE; -Lactated Ringer's Solution 1,000 ML IV ONE; -Lidocaine Hydrochloride 5 ML VIAL IV ONE; -Midazolam Hydrochloride 2 MG/2 ML VIAL IV ONE; -Ondansetron Hydrochloride 4 MG/2 ML VIAL IV ONE; -PROPOFOL 200 MG/20 ML VIAL IV ONE; -Ropivacaine Hydrochloride 5 MG/ML 20 ML AMP IJ ONE; -SEVOFLURANE 250 ML BOT INH ONE; -Vancomycin Hydrochloride 1,000 MG VIAL IV ONE; -ceFAZolin sodium/sodium chlor 20 ML IV ONE; -fentaNYL CITRATE 100 MCG/2 ML VIAL IV ONE
== END | disposition home or self-care (01) ==
LOC: WOUNDCARE 04:33
PROVIDERS: ATTEND Nurse Practitioner Family
DX: T23.301A Burn of third degree of right hand, unspecified site, initial encounter (principal); T31.0 Burns involving less than 10% of body surface; E11.43 Type 2 diabetes mellitus with diabetic autonomic (poly)neuropathy; K31.84 Gastroparesis; L53.9 Erythematous condition, unspecified; R22.31 Localized swelling, mass and lump, right upper limb; F17.210 Nicotine dependence, cigarettes, uncomplicated; Z90.49 Acquired absence of other specified parts of digestive tract; Z90.81 Acquired absence of spleen; Z79.4 Long term (current) use of insulin; Z79.899 Other long term (current) drug therapy; X10.2XXA Contact with fats and cooking oils, initial encounter; Y93.G3 Activity, cooking and baking; Y92.89 Other specified places as the place of occurrence of the external cause; Y99.8 Other external cause status

== ENCOUNTER → 2024-07-04 | Outpatient (CLI) | payer OTHER | END | disposition home or self-care (01) | LOC: WOUNDCARE 01:58 | PROVIDERS: ATTEND Nurse Practitioner Family | DX: T23.301D Burn of third degree of right hand, unspecified site, subsequent encounter (principal); T31.0 Burns involving less than 10% of body surface; E11.43 Type 2 diabetes mellitus with diabetic autonomic (poly)neuropathy; K31.84 Gastroparesis; L53.9 Erythematous condition, unspecified; R22.31 Localized swelling, mass and lump, right upper limb; F17.210 Nicotine dependence, cigarettes, uncomplicated; Z90.49 Acquired absence of other specified parts of digestive tract; Z90.81 Acquired absence of spleen; Z79.4 Long term (current) use of insulin; Z79.899 Other long term (current) drug therapy; X10.2XXD Contact with fats and cooking oils, subsequent encounter ==

== ENCOUNTER → 2024-07-11 | Outpatient (CLI) | payer OTHER | END | disposition home or self-care (01) | LOC: WOUNDCARE 01:48 | PROVIDERS: ATTEND Nurse Practitioner Family | DX: T23.301D Burn of third degree of right hand, unspecified site, subsequent encounter (principal); T31.0 Burns involving less than 10% of body surface; E11.43 Type 2 diabetes mellitus with diabetic autonomic (poly)neuropathy; K31.84 Gastroparesis; L53.9 Erythematous condition, unspecified; R22.31 Localized swelling, mass and lump, right upper limb; F17.210 Nicotine dependence, cigarettes, uncomplicated; Z90.49 Acquired absence of other specified parts of digestive tract; Z90.81 Acquired absence of spleen; Z79.4 Long term (current) use of insulin; Z79.899 Other long term (current) drug therapy; X10.2XXD Contact with fats and cooking oils, subsequent encounter ==

== ENCOUNTER → 2024-07-17 | Outpatient (CLI) | payer OTHER | END | disposition home or self-care (01) | LOC: D 08:59 | PROVIDERS: ATTEND Family Medicine | DX: K31.84 Gastroparesis (principal) ==

== ENCOUNTER → 2024-07-25 | Outpatient (CLI) | payer OTHER ==
[2024-07-25 08:00] LABS: BILIRUBIN Negative (Negative); BLOOD Negative (Negative); CLARITY Cloudy (Clear); COLOR Yellow (Yellow); GLUCOSE 3+ (Negative); KETONE Negative (Negative); LEUKO ESTERASE Trace (Negative); NITRITE Negative (Negative); SPECIFIC GRAVITY >= 1.030 (1.001-1.030); UROBILINOGEN 0.2 E.U./dl (0.0-1.0)
[2024-07-25 08:16] LABS: ALKALINE PHOSPHATASE 126 U/L (46-116); BUN 10 mg/dl (9-23); CHLORIDE 104 mmol/L (98-107); CHOLESTEROL 174 mg/dL (<200); LDL CHOLESTEROL 60 mg/dL (9-159); POTASSIUM 3.6 mmol/L (3.4-5.1); SGPT/ALT 13 U/L (5-49); TOTAL PROTEIN 7.8 gm/dL (6.0-8.0); TRIGLYCERIDES 174 mg/dl (<150)
[2024-07-25 10:39] LABS: EPITHELIAL CELLS 31-40
[2024-07-25 10:40] LABS: BACTERIA 1+; YEAST 3+
== END | disposition home or self-care (01) ==
LOC: LAB 07:04
PROVIDERS: ATTEND Internal Medicine
DX: E11.9 Type 2 diabetes mellitus without complications (principal); E78.5 Hyperlipidemia, unspecified; E55.9 Vitamin D deficiency, unspecified

== ENCOUNTER → 2024-12-05 | Outpatient (CLI) | payer OTHER ==
[2024-12-05 07:38] LABS: HEMATOCRIT 37.9 % (37.0-47.0); MEAN CELL VOLUME 90.2 fl (81.0-99.0); MEAN CORPUSCULAR HGB 29.5 pg (27.0-31.0); MEAN CORPUSCULAR HGB CONC 32.7 g/dl (33.0-37.0); MEAN PLATELET VOLUME 9.4 fl (9.6-12.3); RED BLOOD COUNT 4.2 10*6/uL (4.10-5.10); RED CELL DISTRI WIDTH 13.2 % (0-14.5); WHITE BLOOD COUNT 16.4 10*3/uL (4.8-10.8)
[2024-12-05 07:41] LABS: BILIRUBIN Negative (Negative); BLOOD Negative (Negative); CLARITY Clear (Clear); COLOR Yellow (Yellow); GLUCOSE 3+ (Negative); KETONE Negative (Negative); LEUKO ESTERASE Negative (Negative); NITRITE Negative (Negative); SPECIFIC GRAVITY >= 1.030 (1.001-1.030); UROBILINOGEN 0.2 E.U./dl (0.0-1.0)
[2024-12-05 08:07] LABS: ALKALINE PHOSPHATASE 190 U/L (46-116); BUN 6 mg/dl (9-23); CHLORIDE 101 mmol/L (98-107); CHOLESTEROL 98 mg/dL (<200); FREE T4 1.19 ng/dl (0.89-1.76); LDL CHOLESTEROL 33 mg/dL (9-159); POTASSIUM 3.7 mmol/L (3.4-5.1); SGPT/ALT 8 U/L (5-49); TOTAL PROTEIN 7.2 gm/dL (6.0-8.0); TRIGLYCERIDES 80 mg/dl (<150)
[2024-12-05 08:10] LABS: RBC 0-2 rbc/hpf (0-2); WBC 0-2 wbc/hpf (0-5)
[2024-12-05 08:33] LABS: VITAMIN D, 25-HYDROXY 81.5 ng/mL (30-100)
== END | disposition home or self-care (01) ==
LOC: LAB 07:03
PROVIDERS: Nurse Practitioner Family; ATTEND Internal Medicine
DX: E11.40 Type 2 diabetes mellitus with diabetic neuropathy, unspecified (principal); E78.5 Hyperlipidemia, unspecified; E55.9 Vitamin D deficiency, unspecified; E61.1 Iron deficiency; E03.9 Hypothyroidism, unspecified

== ENCOUNTER → 2025-01-27 | Outpatient (CLI) | payer OTHER | END | disposition home or self-care (01) | LOC: US 01-13 10:30 | PROVIDERS: ATTEND Nurse Practitioner Women's Health | DX: R92.30 Dense breasts, unspecified (principal) ==

== ENCOUNTER → 2025-07-03 | Outpatient (CLI) | payer OTHER ==
[2025-07-03 08:05] LABS: BILIRUBIN Negative (Negative); BLOOD Negative (Negative); CLARITY Clear (Clear); COLOR Yellow (Yellow); KETONE Negative (Negative); LEUKO ESTERASE 1+ (Negative); NITRITE Negative (Negative); PH 7.0 (4.5-8.0); SPECIFIC GRAVITY >= 1.030 (1.001-1.030); UROBILINOGEN 0.2 E.U./dl (0.0-1.0)
[2025-07-03 08:44] LABS: BUN 9 mg/dl (9-23); FREE T4 1.06 ng/dl (0.89-1.76); LDL CHOLESTEROL 55 mg/dL (9-159)
[2025-07-03 08:49] LABS: SGPT/ALT < 7 U/L (5-49)
[2025-07-03 08:51] LABS: BACTERIA 3+; EPITHELIAL CELLS 31-40; RBC 0-2 rbc/hpf (0-2); YEAST 2+
[2025-07-03 09:43] LABS: VITAMIN D, 25-HYDROXY 64.9 ng/mL (30-100)
== END | disposition home or self-care (01) ==
LOC: LAB 07:03
PROVIDERS: ATTEND Internal Medicine
DX: E11.40 Type 2 diabetes mellitus with diabetic neuropathy, unspecified (principal); E78.5 Hyperlipidemia, unspecified; E55.9 Vitamin D deficiency, unspecified; E61.1 Iron deficiency; E03.9 Hypothyroidism, unspecified

== ENCOUNTER → 2025-09-25 | Outpatient (CLI) | payer OTHER ==
[2025-09-25 09:08] LABS: MEAN CELL VOLUME 88.2 fl (81.0-99.0); MEAN CORPUSCULAR HGB 28.1 pg (27.0-31.0); MEAN PLATELET VOLUME 9.5 fl (9.6-12.3); NUCLEATED RED BLOOD CELL 0.0 % (0.0-0.0); NUCLEATED RED BLOOD CELL 0.0 10*3/uL (0.0-0.0); PLATELET COUNT AUTOMATED 548.0 10*3/uL (130-400); RED CELL DISTRI WIDTH 14.0 % (0-14.5)
== END | disposition home or self-care (01) ==
LOC: LAB 07:03
PROVIDERS: ATTEND Nurse Practitioner Family
DX: M47.817 Spondylosis without myelopathy or radiculopathy, lumbosacral region (principal); M41.86 Other forms of scoliosis, lumbar region; M54.2 Cervicalgia; M54.6 Pain in thoracic spine; M54.50 Low back pain, unspecified